=== PATIENT | female | born 1965 | race Caucasian/White ===

== ENCOUNTER → 2019-07-07 | Outpatient (CLI) | payer BC ==
--- NOTE | 2019-07-07 14:56 | US ---
EXAMINATION TYPE: US thyroid st tissue head/neck DATE OF EXAM: 07/07/2019 COMPARISON: NONE CLINICAL HISTORY: R13.13 Pharyngeal Dysphagia. Patient stated just started on thyroid medication for hypothyroidism. GLAND SIZE: Right Lobe: 4.1 x 1.4 x 1.8 cm Overall Parenchyma: heterogenous Left Lobe: 4.0 x 2.1 x 1.7 cm Overall Parenchyma: heterogeneous Isthmus Thickness: 0.5 cm NODULES RIGHT: # of nodules measured on right: 0 LEFT: # of nodules measured on left: 0 ISTHMUS: # of nodules measured in the isthmus: 0 Bilateral neck scanned: multiple small lymph nodes are seen superior to right thyroid with largest no de = 1.3 x 0.6 x 0.4cm and lymph node is seen superior to left thyroid = 1.7 x 0.9 x 0.4cm. IMPRESSION: Diffusely heterogenous thyroid gland that is upper limits of normal size. Morphologically normal-appe aring nonenlarged lymph nodes are seen adjacent to the thyroid. Given the diffuse heterogeneity of th e thyroid gland correlation with serum laboratory values to exclude thyroiditis are recommended.
--- NOTE | 2019-07-10 13:21 | MM ---
Reason for exam: screening (asymptomatic). Last mammogram was performed 2 years and 10 months ago. History: Patient is postmenopausal. Family history of breast cancer in 2 aunts. Physical Findings: A clinical breast exam by your physician is recommended on an annual basis and results should be correlated with mammographic findings. MG Screening Mammo w CAD Bilateral CC and MLO view(s) were taken. Prior study comparison: August 27, 2016, bilateral MG screening mammo w CAD. April 17, 2011, bilateral digital screening mammo w/CAD. The breast tissue is heterogeneously dense. This may lower the sensitivity of mammography. No significant changes when compared with prior studies. ASSESSMENT: Negative, BI-RAD 1 RECOMMENDATION: Routine screening mammogram of both breasts in 1 year. Patient should continue monthly self breast exams. A negative report should not preclude additional follow up of suspicious palpable abnormalities.
== END | disposition home or self-care (01) ==
LOC: RADUSWWP 13:45
PROVIDERS: ATTEND Family Medicine
DX: Z12.31 Encounter for screening mammogram for malignant neoplasm of breast (principal); R93.89 Abnormal findings on diagnostic imaging of other specified body structures; R13.13 Dysphagia, pharyngeal phase
CPT/HCPCS: 76536; 77067

== ENCOUNTER 2019-07-13 06:38 | Day surgery (SDC) | payer BC ==
[2019-07-11 10:22] VITALS: BMI 23.6
[~2019-07-13 06:38] MED LIST: LACTATED RINGERS 1,000 ML IV SCH; LIDOCAINE 1% 20 ML VIAL (10MG/ML) FOR IV START INTRADERMA PRN
[2019-07-13 07:18] VITALS: RESP 16; TEMP 98.7
[2019-07-13] MEDS ORDERED: PROPOFOL 10 MG/ML 20 ML VIAL IV ONE (07:44)
--- NOTE | 2019-07-13 07:52 | P.GSHP ---
History of Present Illness H&P Date: 07/13/19 Chief Complaint: Screening colonoscopy Female referred from Dr. Sharad Argueta. Patient presents today for screening colonoscopy. Past Medical History Past Medical History: Hyperlipidemia, Thyroid Disorder History of Any Multi-Drug Resistant Organisms: None Reported Past Surgical History: Section, Tubal Ligation Additional Past Surgical History / Comment(s): D&C, sinusplasty Past Anesthesia/Blood Transfusion Reactions: No Reported Reaction Past Psychological History: No Psychological Hx Reported Smoking Status: Current every day smoker Past Alcohol Use History: Occasional Additional Past Alcohol Use History / Comment(s): smoker for 30 years <1ppd Past Drug Use History: None Reported - Past Family History Mother Family Medical History: No Reported History Medications and Allergies Home Medications Medication Instructions Recorded Confirmed Type Atorvastatin [Lipitor] 20 mg PO DAILY 07/11/19 07/13/19 History Levothyroxine Sodium [Synthroid] 50 mcg PO DAILY 07/11/19 07/13/19 History Multivitamins, Thera [Multivitamin 1 tab PO DAILY 07/11/19 07/11/19 History (formulary)] Corona-3 Fatty Acids/Fish Oil [Fish 1 each PO DAILY 07/11/19 07/11/19 History Oil 1,000 mg Softgel] Vitamin B Complex 1 each PO DAILY 07/11/19 07/11/19 History Allergies Allergy/AdvReac Type Severity Reaction Status Date / Time No Known Allergies Allergy Verified 07/13/19 07:19 Surgical - Exam Vital Signs Temp Pulse Resp BP Pulse Ox 98.7 F 93 16 126/75 100 07/13/19 07:17 07/13/19 07:17 07/13/19 07:17 07/13/19 07:17 07/13/19 07:17 - General well developed, well nourished, no distress - Eyes PERRL - ENT normal pinna - Neck no masses - Respiratory normal expansion - Cardiovascular Rhythm: regular - Abdomen Abdomen: soft, non tender Assessment and Plan Assessment: We'll perform screening colonoscopy
--- NOTE | 2019-07-13 08:09 | P.OP ---
Date of Procedure: 07/13/19 Preoperative Diagnosis: Screening colonoscopy Postoperative Diagnosis: Rectal polyp Procedure(s) Performed: Colonoscopy Anesthesia: MAC Surgeon: Jeremie Bautista Pathology: other (Rectal polyp) Condition: stable Disposition: PACU Description of Procedure: The patient's placed on the endoscopy table in the lateral position. She received IV sedation. Digital rectal exam was performed which revealed no rebound is. The flexible colonoscope was then placed patient anus passed throughout the entire colon. The ileocecal valve was visualized. The cecum, ascending and transverse colon appeared normal. The descending colon was normal. The sigmoid colon appeared normal. Scope summer back the rectum and a small polyp was seen. This removed with the cold forcep. The scope was then brought back the rectum and this appeared normal. Scope was withdrawn for patient.
[2019-07-13 08:28] VITALS: BP 117/80; PULSE 74
== END 2019-07-13 08:40 | disposition home or self-care (01) ==
LOC: ORWHC2ENDO 06:38
PROVIDERS: ATTEND Surgery
DX: Z12.11 Encounter for screening for malignant neoplasm of colon (principal); K62.1 Rectal polyp; E78.5 Hyperlipidemia, unspecified; E07.9 Disorder of thyroid, unspecified; F17.210 Nicotine dependence, cigarettes, uncomplicated; Z98.891 History of uterine scar from previous surgery; Z98.51 Tubal ligation status; Z98.890 Other specified postprocedural states; Z79.890 Hormone replacement therapy; Z79.899 Other long term (current) drug therapy
CPT/HCPCS: 88305; 45380; J2704

== ENCOUNTER → 2019-07-27 | Outpatient (CLI) | payer BC ==
[2019-07-28 03:20] LABS: Thyroid Peroxidase Antibodies >13000.0 U/mL (0.0-59.9)
== END | disposition home or self-care (01) ==
LOC: LABWHC1 11:36
PROVIDERS: ATTEND Otolaryngology
DX: E03.9 Hypothyroidism, unspecified (principal)
CPT/HCPCS: 36415; 86376; 86800

== ENCOUNTER 2020-05-09 21:35 | Emergency (ER) | payer BC ==
--- NOTE | 2020-05-09 22:50 | CT ---
EXAMINATION TYPE: CT brain juhiine wo con DATE OF EXAM: 05/09/2020 COMPARISON: None HISTORY: fall Headache. Neck pain CT DLP: 795.3 mGycm Automated exposure control for dose reduction was used. Ventricles and sulci appear normal. There is no mass effect nor midline shift. There is no sign of in tracranial hemorrhage. Calvarium is intact. There is no evidence of cerebral edema. The skull base is intact. There is normal aeration of the temporal bones. Cervical vertebra show fairly normal alignment. There is a minimal retrolisthesis at C5-6. There is m ild narrowing of C5-6 disc space. Posterior elements are intact. Facet joints appear fairly normal. P revertebral soft tissues appear normal. IMPRESSION: Negative CT scan of the brain. Negative CT scan cervical spine. Spondylotic changes at C5-6.
--- NOTE | 2020-05-09 22:55 | CT ---
EXAMINATION TYPE: CT facial bones wo con DATE OF EXAM: 05/09/2020 COMPARISON: None HISTORY: fall CT DLP: 213.3 mGycm Automated exposure control for dose reduction was used. Multiple axial sections were obtained from the bottom of the mandible to the top of the frontal sinus es without contrast. The mandibular ring is intact. Temporomandibular joints appear intact. Zygomatic arches appear normal . The maxilla appears intact. There is no evidence of a blowout fracture. Orbital margins are intact. There is no evidence of retro-orbital mass. The globes are symmetric. There is fairly normal development and aeration of the paranasal sinuses. I see no bony destructive p rocess. There is slight deformity of the nasal bone. There is no evidence of soft tissue mass. There is mild subcutaneous density lateral to the left temporalis muscle at the mandible. IMPRESSION: Possible nondisplaced fracture of the nasal bone. Mild subcutaneous density lateral to the left tempo ralis muscle at the mandible could be some minimal bruising or hematoma..
--- NOTE | 2020-05-09 22:57 | ED ---
Fall HPI - General Chief Complaint: Fall Stated Complaint: Fall Time Seen by Provider: 05/09/20 21:49 Source: patient Mode of arrival: ambulatory - History of Present Illness Initial Comments: 54-year-old female patient presents to the emergency department today for evaluation after falling and hitting her face on the stairs. Patient states that she had been drinking a little bit today. States that her grandson jumped on her and she fell forward hitting her face on a step. Patient denies any loss of consciousness. States she did injure her teeth and nose. She denies any neck or back pain. States that her tetanus vaccine is up-to-date within the last 5 years. She denies any other injuries. Patient denies any headache, neck pain, back pain, chest pain, shortness of breath, dizziness, weakness, abdominal pain, nausea, vomiting, or difficulties with bowel movements or urination. - Related Data Home Medications Medication Instructions Recorded Confirmed Atorvastatin [Lipitor] 20 mg PO DAILY 07/11/19 01/03/20 Salix-3 Fatty Acids/Fish Oil [Fish 1 each PO DAILY 07/11/19 01/03/20 Oil 1,000 mg Softgel] Vitamin B Complex 1 each PO DAILY 07/11/19 01/03/20 Levothyroxine Sodium 100 mcg PO DAILY 01/03/20 01/03/20 Omeprazole 20 mg PO DAILY 01/03/20 01/03/20 Allergies Allergy/AdvReac Type Severity Reaction Status Date / Time No Known Allergies Allergy Verified 05/09/20 21:46 Review of Systems ROS Statement: Those systems with pertinent positive or pertinent negative responses have been documented in the HPI. ROS Other: All systems not noted in ROS Statement are negative. Past Medical History Past Medical History: GERD/Reflux, Hyperlipidemia, Thyroid Disorder History of Any Multi-Drug Resistant Organisms: None Reported Past Surgical History: Section Additional Past Surgical History / Comment(s): colonoscopy. RHINOPLASTY Past Anesthesia/Blood Transfusion Reactions: No Reported Reaction Past Psychological History: No Psychological Hx Reported Smoking Status: Current every day smoker Past Alcohol Use History: Occasional Past Drug Use History: None Reported - Past Family History Mother Family Medical History: No Reported History General Exam Limitations: no limitations General appearance: alert, in no apparent distress, other (This is a well- developed, well-nourished adult female patient in no acute distress. Vital signs upon presentation are temperature 97.6F, pulse 100, respirations 18, blood pressure 126/89, pulse ox 96% on room air.) Head exam: Present: other (Patient has soft tissue swelling, ecchymosis noted to the submandibular region over the chin.) Eye exam: Present: normal appearance, PERRL, EOMI. Absent: scleral icterus, conjunctival injection, nystagmus, periorbital swelling, periorbital tenderness ENT exam: Present: normal exam, normal oropharynx, mucous membranes moist, other (Patient has broken tooth number 8. States that she did have crowns over the 8th and 9th teeth that broke off. Patient is 1.5 cm irregular laceration to the lower lip, inside the mouth over the bucchal surface. Patient has dried blood over the bilateral nares. No evidence of septal hematoma. ) Neck exam: Present: normal inspection, full ROM, other (Nontender, no step-off, no deformity to firm midline palpation of the posterior cervical spine. Full range of motion without pain or limitation.). Absent: tenderness, meningismus, lymphadenopathy Respiratory exam: Present: normal lung sounds bilaterally. Absent: respiratory distress, wheezes, rales, rhonchi, stridor Cardiovascular Exam: Present: regular rate, normal rhythm, normal heart sounds. Absent: systolic murmur, diastolic murmur, rubs, gallop, clicks GI/Abdominal exam: Present: soft, normal bowel sounds. Absent: distended, tenderness, guarding, rebound, rigid Extremities exam: Present: normal inspection, full ROM, normal capillary refill. Absent: tenderness, pedal edema, joint swelling, calf tenderness Back exam: Present: normal inspection, other (Nontender, no step-off, no deformity to firm midline palpation of the thoracic and lumbar vertebrae. Full range of motion without pain or limitation.). Absent: vertebral tenderness Neurological exam: Present: alert, oriented X3, CN II-XII intact Psychiatric exam: Present: normal affect, normal mood Skin exam: Present: warm, dry, intact, normal color. Absent: rash Course Vital Signs 05/09/20 21:42 Temperature 97.6 F Pulse Rate 100 Respiratory 18 Rate Blood Pressure 126/89 O2 Sat by Pulse 96 Oximetry Medical Decision Making - Medical Decision Making 54-year-old female patient presents to the emergency department today for evaluation of facial injuries after experiencing a fall. Physical examination did reveal dried blood to the bilateral nares, nasal bone tenderness, no evidence for septal hematoma. Patient did have a fractured tooth #8, missing crowns to t88th #8 and 9. Patient had a 1.5 cm irregular laceration noted to the bucchal mucosa over the lower lip. This did not require repair. CT brain cspine and facial bones were obtained. Patient did have possible nondisplaced nasal bone fracture. No evidence for brain or cervical spine injury. I did discuss findings and results with the patient. She is instructed to swish with salt water and to prevent food from getting into the lip laceration. She is instructed to follow-up with her primary care physician for recheck in 1-2 days. She was given follow-up information for ENT should she require it. Return parameters were discussed in detail. She verbalizes understanding and agrees with this plan. - Radiology Data Radiology results: report reviewed, image reviewed CT brain and C-spine without contrast was obtained. Report is reviewed in its entirety. Impression by Dr. Rose shows negative computed tomography scan of the brain. Negative computed tomography scan of the cervical spine. Spondylotic changes at C5 to 6. CT facial bones without contrast was obtained. Report is reviewed in its entirety. Impression by Dr. Rose shows possible nondisplaced fracture of the nasal bone. Mild subcutaneous density lateral to the left temporalis muscle at the mandible could be some minimal bruising or hematoma. Disposition Clinical Impression: Nasal bone fracture, Laceration of lower lip, Fractured dental anglican with loss of material Disposition: HOME SELF-CARE Condition: Good Instructions (If sedation given, give patient instructions): Nasal Fracture (ED), Laceration (ED) Additional Instructions: Keep wounds clean. Swish with salt water for the next couple of days. Follow- up with dentistry for further evaluation as soon as possible. Follow-up through primary care physician for recheck in 1-2 days. Follow up with ENT as needed. Return to the emergency department immediately for any new, worsening, or concerning symptoms. Is patient prescribed a controlled substance at d/c from ED?: No Referrals: Bren Carrington MD [Primary Care Provider] - 1-2 days Roly Bragg MD [STAFF PHYSICIAN] - 1-2 days
[2020-05-09 23:16] VITALS: BP 158/100; PULSE 78; RESP 16; TEMP 98.3
== END 2020-05-09 23:14 | disposition home or self-care (01) ==
LOC: EC 21:35
DX: S01.511A Laceration without foreign body of lip, initial encounter (principal); S02.2XXA Fracture of nasal bones, initial encounter for closed fracture; S02.5XXA Fracture of tooth (traumatic), initial encounter for closed fracture; E07.9 Disorder of thyroid, unspecified; E78.5 Hyperlipidemia, unspecified; K21.9 Gastro-esophageal reflux disease without esophagitis; F17.200 Nicotine dependence, unspecified, uncomplicated; Z79.890 Hormone replacement therapy; Z79.899 Other long term (current) drug therapy; W18.09XA Striking against other object with subsequent fall, initial encounter; Y92.009 Unspecified place in unspecified non-institutional (private) residence as the place of occurrence of the external cause
CPT/HCPCS: 70450; 70486; 72125; 99283

== ENCOUNTER → 2020-07-29 | Outpatient (CLI) | payer BC ==
--- NOTE | 2020-07-30 12:22 | MM ---
Reason for exam: screening (asymptomatic). Last mammogram was performed 1 year and 1 month ago. History: Patient is postmenopausal. Family history of breast cancer in 2 aunts. Physical Findings: A clinical breast exam by your physician is recommended on an annual basis and results should be correlated with mammographic findings. MG Screening Mammo w CAD Bilateral CC and MLO view(s) were taken. XCCL view(s) were taken of the right breast. Prior study comparison: July 07, 2019, bilateral MG screening mammo w CAD. August 27, 2016, bilateral MG screening mammo w CAD. The breast tissue is heterogeneously dense. This may lower the sensitivity of mammography. There are benign appearing vascular calcifications in the right breast. There is no discrete abnormality. ASSESSMENT: Benign, BI-RAD 2 RECOMMENDATION: Routine screening mammogram of both breasts in 1 year.
== END | disposition home or self-care (01) ==
LOC: RADMAMWWP 13:21
PROVIDERS: ATTEND Family Medicine
DX: Z12.39 Encounter for other screening for malignant neoplasm of breast (principal)
CPT/HCPCS: 77067

== ENCOUNTER → 2021-10-24 | Outpatient (CLI) | payer BC ==
--- NOTE | 2021-10-27 10:09 | MM ---
Reason for exam: screening (asymptomatic). Last mammogram was performed 1 year and 3 months ago. History: Patient is postmenopausal. Family history of breast cancer in 2 aunts. Physical Findings: A clinical breast exam by your physician is recommended on an annual basis and results should be correlated with mammographic findings. MG Screening Mammo w CAD Bilateral CC and MLO view(s) were taken. Prior study comparison: July 29, 2020, bilateral MG screening mammo w CAD. July 07, 2019, bilateral MG screening mammo w CAD. The breast tissue is heterogeneously dense. This may lower the sensitivity of mammography. There are benign appearing vascular calcifications bilaterally. There is no discrete abnormality. ASSESSMENT: Benign, BI-RAD 2 RECOMMENDATION: Routine screening mammogram of both breasts in 1 year.
== END | disposition home or self-care (01) ==
LOC: RADMAMWWP 09:55
PROVIDERS: ATTEND Family Medicine
DX: Z12.31 Encounter for screening mammogram for malignant neoplasm of breast (principal); Z80.3 Family history of malignant neoplasm of breast; Z78.0 Asymptomatic menopausal state
CPT/HCPCS: 77067

== ENCOUNTER → 2022-09-22 | Outpatient (CLI) | payer BC ==
--- NOTE | 2022-09-22 17:28 | US ---
EXAMINATION TYPE: US pelvic complete DATE OF EXAM: 09/22/2022 COMPARISON: CT 08/27/2022 CLINICAL HISTORY: N94.[address] showed left adnexal cyst , patient has zero symptoms TECHNIQUE: TA. Transabdominal sonographic images of the pelvis were acquired. Date of LMP: a couple years ago EXAM MEASUREMENTS: Uterus: 6.4 x 4.7 x 2.9 cm Endometrial Stripe: 0.5 cm Right Ovary: not seen Left Ovary: 2.9 x 3.3 x 2.4cm 1. Uterus: Anteverted wnl 2. Endometrium: wnl 3. Right Ovary: not seen due to bowel gas and or atrophy 4. Left Ovary: 1.8 x 1.4 x 1.3cm, cystic structure does appear to be in ovary and is half the size i t was [address] measurement 4.6 x 2.1 cm. 5. Bilateral Adnexa: wnl 6. Posterior cul-de-sac: wnl Urinary bladder is sonolucent. IMPRESSION: 1. Resolving left ovarian cyst. Additional follow-up ultrasound recommended in 6 weeks.
== END | disposition home or self-care (01) ==
LOC: RADUSWWP 08:17
PROVIDERS: ATTEND Family Medicine
DX: N83.202 Unspecified ovarian cyst, left side (principal); N94.9 Unspecified condition associated with female genital organs and menstrual cycle
CPT/HCPCS: 76856

== ENCOUNTER → 2022-09-25 | Outpatient (CLI) | payer BC ==
--- NOTE | 2022-09-29 08:36 | PE ---
EXAMINATION TYPE: PET CT fusion skull to thigh DATE OF EXAM: 09/25/2022 COMPARISON: Whole-body CT August 27, 2022 HISTORY: Solitary pulmonary nodule, abnormal CT TECHNIQUE: Following the intravenous administration of 11.2 mCi of F-18 FDG, whole body images are p erformed from the skull base to the midthigh. Images are reviewed on the computer in the coronal, ax ial, and sagittal planes. Reconstructed rotating images are created on independent workstation and r eviewed on the computer. A localization and attenuation correction CT is performed in conjunction w ith the PET scan. Blood glucose level was 98 SCAN: Initial Scan FINDINGS: SKULL BASE AND NECK: No areas of abnormal hypermetabolic uptake. CHEST, MEDIASTINUM, AND HILAR REGION: Mild to moderate underlying emphysematous changes are redemonst rated. Persistent linear scarring with slight nodularity in the right middle lobe axial image 107 ewelina ws no suspicious hypermetabolic uptake. Persistent spiculated nodule or scar like opacity posterior l eft upper lobe measures 1.8 x 0.8 cm with mild hypermetabolic uptake axial image 75, max SUV is 0.99. No additional areas of abnormal hypermetabolic uptake. ABDOMEN AND PELVIS: No adrenal masses. Normal excretion. No abnormal hypermetabolic uptake. OSSEOUS STRUCTURES: No abnormal hypermetabolic uptake. OTHER CT: Patient has little intra-abdominal fat similar to prior. Persistent low dense oval 5.8 x 2. 0 cm lesion in the left adnexa favoring benign thin-walled cyst unchanged in size and appearance from prior CT. Disc space narrowing with vacuum disc phenomenon lumbosacral junction is redemonstrated. IMPRESSION: Stable spiculated 1.8 x 0.8 cm lesion posterior left upper lobe with minimal hypermetabol ic uptake. Neoplasm unlikely but cannot be entirely excluded. Favor postinflammatory scarring. No sumeet picious adenopathy or metastatic disease noted. Consider short-term CT follow-up in 3-6 months time t o document stability.
== END | disposition home or self-care (01) ==
LOC: RADPETMAIN 06:52
PROVIDERS: ATTEND Family Medicine
DX: R91.1 Solitary pulmonary nodule (principal); R93.89 Abnormal findings on diagnostic imaging of other specified body structures
CPT/HCPCS: 78815; A9552

== ENCOUNTER → 2022-10-26 | Outpatient (CLI) | payer BC ==
--- NOTE | 2022-10-27 06:51 | MM ---
Reason for Exam: Screening (asymptomatic). Last mammogram was performed 1 year(s) and 1 month(s) ago. Patient History: Menarche at age 15. First Full-Term at age 24. Postmenopausal. Maternal aunt had breast cancer. Maternal aunt had breast cancer. Risk Values: Ginny 5 year model risk: 1.1%. NCI Lifetime model risk: 7.4%. Prior Study Comparison: 07/07/2019 Bilateral Screening Mammogram, [facility]. 07/29/2020 Bilateral Screening Mammogram, [facility]. 10/24/2021 Bilateral Screening Mammogram, [facility]. Tissue Density: The breast tissue is heterogeneously dense. This may lower the sensitivity of mammography. Findings: Analyzed By CAD. There is benign-appearing vascular calcifications bilaterally redemonstrated. There is no suspicious group of microcalcifications or new suspicious mass in either breast. Overall Assessment: Negative, BI-RAD 1 Management: Screening Mammogram of both breasts in 1 year. Some advise bilateral breast ultrasound surveillance in patients with background dense tissue. A clinical breast exam by your physician is recommended on an annual basis and results should be correlated with mammographic findings. Electronically signed and approved by: Marek Land M.D.
== END | disposition home or self-care (01) ==
LOC: RADMAMWWP 09:04
PROVIDERS: ATTEND Family Medicine
DX: Z12.31 Encounter for screening mammogram for malignant neoplasm of breast (principal); Z80.3 Family history of malignant neoplasm of breast; Z78.0 Asymptomatic menopausal state
CPT/HCPCS: 77067

== ENCOUNTER → 2023-04-13 | Outpatient (CLI) | payer BC ==
--- NOTE | 2023-04-13 13:27 | CT ---
EXAMINATION TYPE: CT chest w con CT DLP: 109.9 mGycm, Automated exposure control for dose reduction was used. DATE OF EXAM: 04/13/2023 12:53 PM COMPARISON: 12/24/2022., PET/CT 10/13/2022, 08/27/2022. CLINICAL INDICATION:Female, 57 years old with history of R91., lung nodule TECHNIQUE: Multiple axial images were obtained through the chest. Sagittal and coronal reformats were created for review. Contrast used:100 mL of Isovue 300 with IV Contrast Oral contrast used: none. FINDINGS: LUNGS/ PLEURA: Left upper lung spiculated scarring/pulmonary nodule is similar morphology to the back to at least 08/27/2022. There is somewhat spiculated peripheral groundglass and more of a central shad id portion measuring at least 7 mm. There is centrilobular emphysema changes throughout the lungs. No focal consolidation, pneumothorax or pleural effusion. No new pulmonary nodules. There is some scarr ing along the right lung base to the diaphragm. AIRWAY: Patent and unremarkable. HEART: Size within normal limits. MEDIASTINUM: No gross evidence of adenopathy. VASCULATURE: Atherosclerotic calcifications are present throughout the aorta and its branches. MUSCULOSKELETAL: Mild disc degeneration changes are present throughout the thoracolumbar spine. SOFT TISSUES/LYMPH NODES: Unremarkable. LOWER NECK: No significant findings. UPPER ABDOMEN: No significant findings. IMPRESSION: Left upper lung pulmonary nodule with somewhat spiculated borders is similar in morpholog y to multiple priors back to at least 08/27/2022. Soft tissue component is felt to not be all that dif ferent given differences in technique and slice selection. Continued surveillance recommended.
== END | disposition home or self-care (01) ==
LOC: RADCTMAIN 12:27
PROVIDERS: ATTEND Internal Medicine Critical Care Medicine
DX: R91.1 Solitary pulmonary nodule (principal)
CPT/HCPCS: 71260; Q9967

== ENCOUNTER 2023-09-24 12:52 | Inpatient (IN) | payer BC ==
--- NOTE | 2023-09-24 12:56 | ED ---
SOB HPI - General Source: patient, RN notes reviewed <Zuly Quiñonez - Last Filed: 09/24/23 12:57> - General Source: RN notes reviewed, old records reviewed - History of Present Illness MD Complaint: shortness of breath, cough, chest pain, anxiety -: days(s) Radiation: back Severity: mild, moderate Severity scale (1-10): 4 Quality: aching Consistency: constant Improves With: nothing Worsens With: nothing Known History Of: COPD, congestive heart failure Context: recent URI, recent illness Associated Symptoms: denies other symptoms Treatments Prior to Arrival: none <Frankie Kincaid - Last Filed: 09/27/23 21:47> - General Stated Complaint: STIVEN Time Seen by Provider: 09/24/23 12:56 - History of Present Illness Initial Comments: Patient is a 58-year-old female presenting to the ER with chief complaint of shortness of breath. Patient states this started in the middle of the night last night. Patient states she feels that she cannot catch her breath. Patient denies any fevers, chills, night sweats. (Zuly Quiñonez) This is a 58-year-old female to the ER for evaluation of sweats sweats and shortness of breath starting last night worsening today with left-sided chest pain significant. Shortness of breath this at times severe (Frankie Kincaid) - Related Data Home Medications Medication Instructions Recorded Confirmed Atorvastatin [Lipitor] 20 mg PO HS 07/11/19 09/24/23 Levothyroxine Sodium 100 mcg PO DAILY 01/03/20 09/24/23 Hydroxychloroquine Sulfate 200 mg PO BID 09/24/23 09/24/23 [Plaquenil] NIFEdipine XL [Procardia XL] 30 mg PO DAILY 09/24/23 09/24/23 Nicotine 21Mg/24Hr Patch [Habitrol] 1 patch TRANSDERM DAILY PRN 09/24/23 09/24/23 Previous Rx's Medication Instructions Recorded Albuterol Sulfate [Albuterol 2 puff INHALATION RT-Q6H #1 09/26/23 Sulfate Hfa] Budesonide-Formot 160-4.5 Mcg 2 puff INHALATION BID #1 each 09/26/23 [Symbicort 160-4.5 Mcg Inhaler] cefUROXime axetiL [Ceftin] 500 mg PO BID 3 Days #6 tab 09/26/23 predniSONE 10 mg PO DIRECTED #30 tab 09/26/23 Allergies Allergy/AdvReac Type Severity Reaction Status Date / Time No Known Allergies Allergy Verified 09/24/23 16:46 Review of Systems ROS Other: All systems not noted in ROS Statement are negative. <Zuly Quiñonez - Last Filed: 09/24/23 12:57> ROS Other: All systems not noted in ROS Statement are negative. <Frankie Kincaid - Last Filed: 09/27/23 21:47> ROS Statement: Those systems with pertinent positive or pertinent negative responses have been documented in the HPI. Past Medical History Past Medical History: GERD/Reflux, Hyperlipidemia, Thyroid Disorder History of Any Multi-Drug Resistant Organisms: None Reported Past Surgical History: Section Additional Past Surgical History / Comment(s): colonoscopy. RHINOPLASTY Past Anesthesia/Blood Transfusion Reactions: No Reported Reaction Past Psychological History: No Psychological Hx Reported Smoking Status: Current every day smoker Past Alcohol Use History: Occasional Past Drug Use History: None Reported - Past Family History Mother Family Medical History: No Reported History <Zuly Quiñonez - Last Filed: 09/24/23 12:57> General Exam <Zuly Quiñonez - Last Filed: 09/24/23 12:57> General appearance: alert, in no apparent distress, anxious Head exam: Present: atraumatic, normocephalic, normal inspection Eye exam: Present: normal appearance, PERRL, EOMI. Absent: scleral icterus, conjunctival injection, periorbital swelling ENT exam: Present: normal exam, mucous membranes moist Neck exam: Present: normal inspection. Absent: tenderness, meningismus, lymphadenopathy Respiratory exam: Present: respiratory distress, wheezes, accessory muscle use, decreased breath sounds, prolonged expiratory. Absent: rales, rhonchi, stridor Cardiovascular Exam: Present: regular rate, normal rhythm, normal heart sounds. Absent: systolic murmur, diastolic murmur, rubs, gallop, clicks GI/Abdominal exam: Present: soft, normal bowel sounds. Absent: distended, tenderness, guarding, rebound, rigid Extremities exam: Present: normal inspection, full ROM, normal capillary refill. Absent: tenderness, pedal edema, joint swelling, calf tenderness Back exam: Present: normal inspection Neurological exam: Present: alert, oriented X3, CN II-XII intact Psychiatric exam: Present: normal affect, normal mood Skin exam: Present: warm, dry, intact, normal color. Absent: rash <Frankie Kincaid - Last Filed: 09/27/23 21:47> - General Exam Comments Initial Comments: Visual Physical Exam Vital signs reviewed General: Well-appearing, nontoxic, no acute distress. Head: Normocephalic, atraumatic Eyes: PERRLA, EOMI ENT: Airway patent Chest: Nonlabored breathing Skin: No visual rash, normal skin tone Neuro: Alert and oriented 3 Musculoskeletal: No gross abnormalities (Zuly Quiñonez) Course <Frankie Kincaid - Last Filed: 09/27/23 21:47> Vital Signs 09/24/23 09/24/23 09/24/23 13:16 16:19 16:37 Temperature 98.6 F 98.8 F Pulse Rate 100 101 H 105 H Pulse Rate [ Left] Respiratory 20 20 20 Rate Blood Pressure 123/77 128/75 Blood Pressure [Left Arm] O2 Sat by Pulse 88 L 84 L 90 L Oximetry 09/24/23 09/24/23 09/24/23 17:00 17:14 17:21 Temperature Pulse Rate 102 H 101 H 101 H Pulse Rate [ Left] Respiratory 20 18 16 Rate Blood Pressure Blood Pressure [Left Arm] O2 Sat by Pulse 93 L Oximetry 09/24/23 09/24/23 19:00 19:55 Temperature 98.4 F Pulse Rate 100 Pulse Rate [ 102 H Left] Respiratory 18 18 Rate Blood Pressure 129/78 Blood Pressure 131/79 [Left Arm] O2 Sat by Pulse 90 L 92 L Oximetry - Reevaluation(s) Reevaluation #1: 09/24/23 17:11 Medical records reviewed (Frankie Kincaid) Reevaluation #2: 09/24/23 17:12 Oximetry remains low without supplemental oxygen (Frankie Kincaid) Reevaluation #3: 09/24/23 17:12 Patient informed results and questions answered (Frankie Kincaid) Reevaluation #4: 09/24/23 17:12 Was pt. sent in by a medical professional or institution (Dr., PA, SILK WINDING MACHINE OPERATOR, urgent care, hospital, or skilled nursing...) When possible be specific @ -no Did you speak to anyone other than the patient for history (EMS, parent, family, police, friend...)? What history was obtained from this source @ -no Did you review nursing and triage notes (agree or disagree)? Why? @ -agree Are old charts reviewed (outside hosp., previous admission, EMS record, old EKG, old radiological studies, urgent care reports/EKG's, skilled nursing records)? Repo rt findings @ -yes Differential Diagnosis (chest pain, altered mental status, abdominal pain women, abdominal pain men, vaginal bleeding, weakness, fever, dyspnea, syncope, headache, dizziness, GI bleed, back pain, seizure, CVA, palpatations, mental health, musculoskeletal)? @ -prior EKG interpreted by me (3pts min.). @ -yes X-rays interpreted by me (1pt min.). @ -yes CT interpreted by me (1pt min.). @ -no U/S interpreted by me (1pt. min.). @ -no What testing was considered but not performed or refused? (CT, X-rays, U/S, labs)? Why? @ -none What meds were considered but not given or refused? Why? @ -none Did you discuss the management of the patient with other professionals (danielle mendoza i.e. MELISSA Sabillon, SILK WINDING MACHINE OPERATOR, lab, RT, psych nurse, social group worker, car audio installer, teacher, mechanical engineering officer, social work case manager)? Give summary @ -no Was smoking cessation discussed for >3mins.? @ -no Was critical care preformed (if so, how long)? @ -no Were there social determinants of health that impacted care today? How? (Homelessness, low income, unemployed, alcoholism, drug addiction, transportation, low edu. Level, literacy, decrease access to med. care, senior care, rehab)? @ -none Was there de-escalation of care discussed even if they declined (Discuss DNR or withdrawal of care, Hospice)? DNR status @ -no What co-morbidities impacted this encounter? (DM, HTN, Smoking, COPD, CAD, Cancer, CVA, ARF, Chemo, Hep., AIDS, mental health diagnosis, sleep apnea, morbid obesity)? @ -none Was patient admitted / discharged? Hospital course, mention meds given and route, prescriptions, significant lab abnormalities, going to OR and other pertinent info. @ - 58 female with significant shortness breath found to have pneumonia here in the emergency room. Patient will be admitted for IV antibiotics breathing trent atments as needed and necessary for pneumonia with severe shortness of breath especially with activity patient was found be hypoxic the 80s here in the ER Admitted Undiagnosed new problem with uncertain prognosis? @ -no Drug Therapy requiring intensive monitoring for toxicity (Heparin, Nitro, Insul in, Cardizem)? @ -no Were any procedures done? @ -no Diagnosis/symptom? @ -Respiratory failure, hypoxia pneumonia with underlying COPD Acute, or Chronic, or Acute on Chronic? @ -Acute Uncomplicated (without systemic symptoms) or Complicated (systemic symptoms)? @ -Complicated Side effects of treatment? @ -no Exacerbation, Progression, or Severe Exacerbation? @ -exacerbation Poses a threat to life or bodily function? How? (Chest pain, USA, OR, pneumonia, PE, COPD, DKA, ARF, appy, cholecystitis, CVA, Diverticulitis, Homicidal, Suicidal, threat to staff... and all critical care pts) @ -yes with significant respiratory failure (Frankie Kincaid) Reevaluation #5: 09/24/23 17:12 Differential Dyspnea: Coronary syndrome, arrhythmia, tamponade, asthma, COPD, pulmonary embolism, pneumonia, pneumothorax, pulmonary effusion, anaphylaxis, diabetic ketoacidosis, flailed chest, pulmonary contusion, diaphragmatic rupture, anemia, ne uromuscular, this is not meant to be an all-inclusive list. (Frankie Kincaid) - Consultations Consultation #1: Spoke with [facility] were agrees to admit this patient (Frankie Kincaid) Medical Decision Making <Zuly Quiñonez - Last Filed: 09/24/23 12:57> - Lab Data Result diagrams: 09/26/23 08:15 09/26/23 08:15 - EKG Data -: EKG Interpreted by Me (EKG is sinus tachycardia 96 VT 163 QRS 79 QTc 407) - Radiology Data Radiology results: report reviewed (Chest x-rays positive for pneumonia), image reviewed <Frankie Kincaid - Last Filed: 09/27/23 21:47> - Medical Decision Making I performed the quick note portion of the exam. Electronically signed by Zuly Quiñonez PA-C (Zuly Quiñonez) 58 female with significant shortness breath found to have pneumonia here in the emergency room. Patient will be admitted for IV antibiotics breathing greta tments as needed and necessary for pneumonia with severe shortness of breath especially with activity patient was found be hypoxic the 80s here in the ER (Frankie Kincaid) - Lab Data Lab Results 09/24/23 09/24/23 09/24/23 Range/Units 13:21 13:21 13:21 WBC 9.0 (3.8-10.6) k/uL RBC 4.39 (3.80-5.40) m/uL Hgb 15.0 (11.4-16.0) gm/dL Hct 44.3 (34.0-46.0) % MCV 101.1 H (80.0-100.0) fL MCH 34.1 (25.0-35.0) pg MCHC 33.8 (31.0-37.0) g/dL RDW 11.8 (11.5-15.5) % Plt Count 225 (150-450) k/uL MPV 7.5 Neutrophils % 79 % Lymphocytes % 10 % Monocytes % 5 % Eosinophils % 4 % Basophils % 0 % Neutrophils # 7.2 (1.3-7.7) k/uL Lymphocytes # 0.9 L (1.0-4.8) k/uL Monocytes # 0.4 (0-1.0) k/uL Eosinophils # 0.3 (0-0.7) k/uL Basophils # 0.0 (0-0.2) k/uL D-Dimer (<0.60) mg/L FEU Sodium 140 (137-145) mmol/L Potassium 4.0 (3.5-5.1) mmol/L Chloride 105 (98-107) mmol/L Carbon Dioxide 23 (22-30) mmol/L Anion Gap 12 mmol/L BUN 7 (7-17) mg/dL Creatinine 0.44 L (0.52-1.04) mg/dL Est GFR (CKD-EPI)AfAm >90 (>60 ml/min/1.73 sqM) Est GFR (CKD-EPI)NonAf >90 (>60 ml/min/1.73 sqM) Glucose 88 (74-99) mg/dL Calcium 9.7 (8.4-10.2) mg/dL Total Bilirubin 1.0 (0.2-1.3) mg/dL AST 28 (14-36) U/L ALT 20 (4-34) U/L Alkaline Phosphatase 101 (38-126) U/L Troponin I <0.012 (0.000-0.034) ng/mL Total Protein 8.4 H (6.3-8.2) g/dL Albumin 5.1 H (3.5-5.0) g/dL 09/24/23 Range/Units 13:21 WBC (3.8-10.6) k/uL RBC (3.80-5.40) m/uL Hgb (11.4-16.0) gm/dL Hct (34.0-46.0) % MCV (80.0-100.0) fL MCH (25.0-35.0) pg MCHC (31.0-37.0) g/dL RDW (11.5-15.5) % Plt Count (150-450) k/uL MPV Neutrophils % % Lymphocytes % % Monocytes % % Eosinophils % % Basophils % % Neutrophils # (1.3-7.7) k/uL Lymphocytes # (1.0-4.8) k/uL Monocytes # (0-1.0) k/uL Eosinophils # (0-0.7) k/uL Basophils # (0-0.2) k/uL D-Dimer 0.41 (<0.60) mg/L FEU Sodium (137-145) mmol/L Potassium (3.5-5.1) mmol/L Chloride (98-107) mmol/L Carbon Dioxide (22-30) mmol/L Anion Gap mmol/L BUN (7-17) mg/dL Creatinine (0.52-1.04) mg/dL Est GFR (CKD-EPI)AfAm (>60 ml/min/1.73 sqM) Est GFR (CKD-EPI)NonAf (>60 ml/min/1.73 sqM) Glucose (74-99) mg/dL Calcium (8.4-10.2) mg/dL Total Bilirubin (0.2-1.3) mg/dL AST (14-36) U/L ALT (4-34) U/L Alkaline Phosphatase (38-126) U/L Troponin I (0.000-0.034) ng/mL Total Protein (6.3-8.2) g/dL Albumin (3.5-5.0) g/dL Critical Care Time Critical Care Time: Yes Total Critical Care Time: 31 <Frankie Kincaid - Last Filed: 09/27/23 21:47> Disposition <Zuly Quiñonez - Last Filed: 09/24/23 12:57> Is patient prescribed a controlled substance at d/c from ED?: No Time of Disposition: 17:05 <Frankie Kincaid - Last Filed: 09/27/23 21:47> Clinical Impression: Acute exacerbation of chronic obstructive pulmonary disease, Community acquired pneumonia, Hypoxia, Acute respiratory failure Disposition: ADMITTED IP TO THIS HOSP Condition: Serious
[2023-09-24 13:40] LABS: Basophils % (A) 0 %; Eosinophils # (A) 0.3 k/uL (0-0.7); Eosinophils % (A) 4 %; HCT 44.3 % (34.0-46.0); Lymphocytes # (A) 0.9 k/uL (1.0-4.8); Lymphocytes % (A) 10 %; MCH 34.1 pg (25.0-35.0); MCHC 33.8 g/dL (31.0-37.0); MCV 101.1 fL (80.0-100.0); Mean Platelet Volume 7.5; Monocytes # (A) 0.4 k/uL (0-1.0); Monocytes % (A) 5 %; Neutrophils # (A) 7.2 k/uL (1.3-7.7); Neutrophils % (A) 79 %; Platelet Count 225 k/uL (150-450); RBC 4.39 m/uL (3.80-5.40); RDW 11.8 % (11.5-15.5)
[2023-09-24 14:02] LABS: ALT 20 U/L (4-34); AST 28 U/L (14-36); African American GFR (CKD) >90 (>60 ml/min/1.73 sqM); Albumin 5.1 g/dL (3.5-5.0); Alkaline Phosphatase 101 U/L (38-126); Anion Gap 12 mmol/L; Blood Urea Nitrogen 7 mg/dL (7-17); Calcium 9.7 mg/dL (8.4-10.2); Carbon Dioxide 23 mmol/L (22-30); Chloride 105 mmol/L (98-107); Glucose 88 mg/dL (74-99); Non-African American GFR(CKD) >90 (>60 ml/min/1.73 sqM); Sodium 140 mmol/L (137-145); Total Protein 8.4 g/dL (6.3-8.2)
--- NOTE | 2023-09-24 14:08 | XR ---
EXAMINATION TYPE: XR chest 2V DATE OF EXAM: 09/24/2023 COMPARISON: CT chest on 04/13/2023. HISTORY: Shortness of breath. TECHNIQUE: Frontal and lateral views of the chest are obtained. IMPRESSION: There is a subtle area of opacity within the left suprahilar region which may represent an airspace p rocess. Short-term follow to resolution is recommended to exclude underlying nodules. There is no add itional focal area of consolidation. The lungs are hyperinflated. The cardiac silhouette and pulmonary vessels are within normal limits.
[2023-09-24] MEDS ORDERED: AZITHROMYCIN 500 MG in SODIUM CHLORIDE 0.9% 250 ML IVPB STA (16:29)
[2023-09-24] MEDS ORDERED: SODIUM CHLORIDE 0.9% 500 ML 500 ML IV STA (16:29)
[2023-09-24] MEDS ORDERED: PNEUMONIA PROTOCOL UTILIZED 1 EACH MISC PO PRN (17:08)
[2023-09-24] MEDS: ALBUTEROL NEBULIZED 2.5 MG/3 ML INHALATION PRN ×2 (17:14→23:11)
[2023-09-24] MEDS ORDERED: MAGNESIUM OXIDE 400 MG TAB PO STA (17:30)
[2023-09-24] MEDS ORDERED: MAGNESIUM SULFATE-D5W PMX 1 GM in DEXTROSE/WATER 1 100ML.BAG IVPB ONE (17:30)
[2023-09-24] MEDS: SODIUM CHLORIDE 0.9% 1,000 ML IV SCH (19:31)
[2023-09-24] MEDS ORDERED: NICOTINE 21MG/24HR PATCH TRANSDERM PRN (23:47)
[2023-09-24] MEDS ORDERED: ACETAMINOPHEN TAB 325 MG TAB PO PRN (23:49)
[2023-09-25] MEDS: SODIUM CHLORIDE 0.9% 1,000 ML IV SCH ×2 (03:36→15:06)
[2023-09-25] MEDS: ALBUTEROL NEBULIZED 2.5 MG/3 ML INHALATION PRN ×4 (03:57→16:41)
[2023-09-25] MEDS: LEVOTHYROXINE 100 MCG TAB PO SCH (06:42)
--- NOTE | 2023-09-25 08:08 | XR ---
EXAMINATION TYPE: XR chest 2V DATE OF EXAM: 09/25/2023 COMPARISON: 09/24/2023 INDICATION: Pneumonia TECHNIQUE: Frontal and lateral views of the chest are obtained. FINDINGS: The heart size is normal. The pulmonary vasculature is normal. The lungs are clear. Left suprahilar region appears improved There is some hyperinflation present. C orrelate for COPD IMPRESSION: 1. No acute pulmonary process. 2. COPD
[2023-09-25] MEDS: HYDROXYCHLOROQUINE SULFATE 200 MG TAB PO SCH ×2 (09:25→20:11)
[2023-09-25] MEDS: NIFEdipine XL 30 MG TAB.ER.24 PO SCH (09:26)
[2023-09-25] MEDS ORDERED: ALPRAZolam 0.25 MG TAB PO PRN (13:11)
--- NOTE | 2023-09-25 14:22 | CT ---
EXAMINATION TYPE: CT chest wo con DATE OF EXAM: 09/25/2023 COMPARISON: 04/13/2023 HISTORY: LT pneumonia CT DLP: 181.3 mGycm, Automated exposure control for dose reduction was used. CONTRAST: Performed injected with 0 mL of Isovue 300. TECHNIQUE: Axial images were obtained at 5 mm thick sections. Reconstructed images are reviewed on EXPO computer in the coronal plane. FINDINGS: Portion of the thyroid visualized is normal. There is an approximately 1.8 cm stable spiculated density in the posterior left midlung. Series 201 image 46. Ill-defined stable 1.2 cm increased density is in the right middle lobe. Series 201 image 9 0. There may be a new infiltrate within the medial right mid lung. Series 201 and image 67. No enlarged mediastinal or hilar adenopathy is evident. The ascending aorta diameter at the level o f the main pulmonary artery is 3.1 cm. The main pulmonary artery diameter at the bifurcation is 2.[address] sections are obtained through the upper abdomen. Abdomen is essentially unremarkable. IMPRESSION: 1. No suspicious large consolidation suggest pneumonia. A new minimal infiltrate within the right mid lung may be present discussed above. 2. Stable irregular densities right mid and left upper lung ayala.
[2023-09-25] MEDS: methylPREDNISolone SOD SUCCI 40 MG/ML 1 ML VIAL IV SCH ×3 (15:03→23:46)
[2023-09-25] MEDS ORDERED: diphenhydrAMINE 25 MG CAP PO PRN (17:01)
[2023-09-25] MEDS: HEPARIN SODIUM,PORCINE 5,000 UNIT/ML 1 ML VIAL SQ SCH (20:11)
[2023-09-25] MEDS ORDERED: ATORVASTATIN 20 MG TAB PO SCH (21:00)
--- NOTE | 2023-09-25 21:41 | HP ---
HISTORY AND PHYSICAL CHIEF COMPLAINT: Shortness of breath and cough. HISTORY OF PRESENT ILLNESS: This is a 58-year-old woman with a past medical history of multiple medical problems, who presented with significant shortness of breath, cough, and sputum last night. The possibility of left suprahilar pneumonia suspected, patient started with IV antibiotics as well as bronchodilators, steroids, and the patient was admitted for further evaluation and treatment. There is no history of any fever, rigors, or chills at this time. The repeat chest x-ray showed some improvement. PAST MEDICAL HISTORY: Reviewed include GERD, hyperlipidemia, rest of the history and rest of the chart is also reviewed. HOME MEDICATIONS: Reviewed include Procardia XL, dose and rest of medications reviewed. ALLERGIES: None. FAMILY HISTORY: No history of heart disease or strokes in the family. SOCIAL HISTORY: History of smoking. REVIEW OF SYSTEMS: A 14-point review is negative except as mentioned earlier. PHYSICAL EXAMINATION: VITAL SIGNS: Pulse is 100, blood pressure 94/65, respirations 16. HEENT: Conjunctivae normal. NECK: No jugular venous distention. CARDIOVASCULAR: S1, S2. RESPIRATIONS: Bilateral scattered rhonchi and crackles. Expiratory wheezing. ABDOMEN: Soft. NERVOUS SYSTEM: No focal deficits. LABORATORY DATA: MCV 101.1. ASSESSMENT: 1. Chronic obstructive pulmonary disease acute exacerbation with possible acute purulent tracheobronchitis, rule out left suprahilar pneumonia. 2. Prominent hilum in the x-ray. 3. GERD. 4. Hyperlipidemia. 5. Hypothyroidism. 6. Possible history of left lung nodule. 7. History of nicotine dependence, continue ongoing. 8. No code, no CPR. RECOMMENDATIONS: This 58-year-old woman presented with multiple complex medical issues, we will monitor the patient closely. We will continue with IV steroids, antibiotics, bronchodilators. Otherwise, empiric antibiotics. I would also recommend close followup with Pulmonary consultation, guarded prognosis. Further recommendations to follow, see orders for details. MMODL / IJN: [id number] /
[2023-09-26] MEDS: LEVOTHYROXINE 100 MCG TAB PO SCH (06:30)
[2023-09-26] MEDS: methylPREDNISolone SOD SUCCI 40 MG/ML 1 ML VIAL IV SCH (06:30)
[2023-09-26] MEDS ORDERED: PANTOPRAZOLE 40 MG TABLET PO SCH (07:30)
[2023-09-26] MEDS: HEPARIN SODIUM,PORCINE 5,000 UNIT/ML 1 ML VIAL SQ SCH (08:40)
[2023-09-26] MEDS: HYDROXYCHLOROQUINE SULFATE 200 MG TAB PO SCH (08:40)
[2023-09-26] MEDS: NIFEdipine XL 30 MG TAB.ER.24 PO SCH (08:40)
[2023-09-26] MEDS: ALBUTEROL NEBULIZED 2.5 MG/3 ML INHALATION PRN (09:16)
[2023-09-26 09:47] VITALS: PULSE 72
[2023-09-26 09:48] VITALS: BP 135/64; RESP 17; TEMP 97.7
[2023-09-26 10:14] LABS: Basophils % (A) 0 %; Eosinophils # (A) 0.1 k/uL (0-0.7); Eosinophils % (A) 1 %; HCT 41.7 % (34.0-46.0); HGB 13.3 gm/dL (11.4-16.0); Hypochromasia Slight; Lymphocytes # (A) 0.8 k/uL (1.0-4.8); Lymphocytes % (A) 8 %; MCH 33.8 pg (25.0-35.0); MCHC 31.9 g/dL (31.0-37.0); Macrocytosis Slight; Mean Platelet Volume 8.3; Monocytes # (A) 0.2 k/uL (0-1.0); Monocytes % (A) 2 %; Neutrophils # (A) 8.8 k/uL (1.3-7.7); Neutrophils % (A) 88 %; Platelet Count 202 k/uL (150-450); RBC 3.93 m/uL (3.80-5.40); RDW 11.6 % (11.5-15.5)
[2023-09-26 11:05] LABS: MCV 106.1 fL (80.0-100.0)
[2023-09-26 12:35] LABS: African American GFR (CKD) >90 (>60 ml/min/1.73 sqM); Anion Gap 14 mmol/L; Blood Urea Nitrogen 5 mg/dL (7-17); Calcium 9.2 mg/dL (8.4-10.2); Carbon Dioxide 20 mmol/L (22-30); Chloride 106 mmol/L (98-107); Glucose 198 mg/dL (74-99); Non-African American GFR(CKD) >90 (>60 ml/min/1.73 sqM); Potassium 4.4 mmol/L (3.5-5.1); Sodium 140 mmol/L (137-145)
--- NOTE | 2023-09-26 12:40 | P.CNPUL ---
History of Present Illness Consult date: 09/26/23 Requesting physician: Shannan Argueta Reason for consult: dyspnea, COPD Chief complaint: Shortness of breath History of present illness: This is a very pleasant 58-year-old female patient with a known history of chronic and ongoing tobacco dependence, chronic obstructive pulmonary disease, pulmonary nodule being followed in the outpatient setting, hyperlipidemia, hypothyroidism, hypertension. He presented to the emergency room on 09/24/2023 with a 2 day history of increasing shortness of breath that started in the middle of the night. She felt she could not catch her breath. Chest x-ray re vealed no acute pulmonary process. Evidence of COPD with hyperinflation. CAT scan of the chest revealed no significant consolidation. Minimal infiltrate in the right midlung. There is a right mid and left upper lobe pulmonary nodules measuring 1.8 cm in the posterior mid left lung and 1.2 cm in the right middle lobe. Blood cultures revealed no growth. White count 10.0. Hemoglobin 13.3. Platelets 202. Sodium 140. Potassium 4.0. Bicarb 23. BUN 7. Creatinine 0.44. Troponin negative. Viral screen negative. Urine legionella screen negative. Pro-calcitonin 0.05. She was initiated on ceftriaxone, albuterol, Solu-Medrol. Heparin for DVT prophylaxis. She is seen today in consultation on the regular medical floor. She is currently sitting up in bed. Awake and alert in no acute distress. She is maintaining good O2 saturations in the 90s on room air. She's afebrile. Hemodynamically stable. Feeling much better. Hoping to go home. Review of Systems REVIEW OF SYSTEMS: CONSTITUTIONAL: Denies any recent significant weight loss or weight gain. EYES: Denies change in vision. EARS, NOSE, MOUTH, THROAT: Denies headaches, denies sore throat. CARDIOVASCULAR: Denies chest pain, palpitations or syncopal episodes. RESPIRATORY: Positive for shortness of breath, no cough, congestion or hemoptysis. GASTROINTESTINAL: Denies change in appetite, denies abdominal pain GENITOURINARY: Denies hematuria, denies infections. MUSKULOSKELETAL: Denies pain, denies swelling. INTEGUMENTARY: Denies rash, denies eczema. NEUROLOGICAL: Denies recent memory loss, no recent seizure activity. PSYCHIATRIC: Denies anxiety, denies depression. HEMATOLOGIC/LYMPHATIC: Denies anemia, denies enlarged lymph nodes. Past Medical History Past Medical History: GERD/Reflux, Hyperlipidemia, Thyroid Disorder Additional Past Medical History / Comment(s): abnormal spot on left lung History of Any Multi-Drug Resistant Organisms: None Reported Past Surgical History: Section Additional Past Surgical History / Comment(s): colonoscopy. RHINOPLASTY Past Anesthesia/Blood Transfusion Reactions: No Reported Reaction Past Psychological History: No Psychological Hx Reported Smoking Status: Current every day smoker Past Alcohol Use History: Occasional Additional Past Alcohol Use History / Comment(s): SMOKES < 1 PPD SINCE AGE 22 Past Drug Use History: None Reported - Past Family History Mother Family Medical History: No Reported History Medications and Allergies Home Medications Medication Instructions Recorded Confirmed Type Atorvastatin [Lipitor] 20 mg PO HS 07/11/19 09/24/23 History Levothyroxine Sodium 100 mcg PO DAILY 01/03/20 09/24/23 History Hydroxychloroquine Sulfate 200 mg PO BID 09/24/23 09/24/23 History [Plaquenil] NIFEdipine XL [Procardia XL] 30 mg PO DAILY 09/24/23 09/24/23 History Nicotine 21Mg/24Hr Patch [Habitrol] 1 patch TRANSDERM DAILY PRN 09/24/23 09/24/23 History Albuterol Sulfate [Albuterol 2 puff INHALATION RT-Q6H #1 09/26/23 09/24/23 Rx Sulfate Hfa] Budesonide-Formot 160-4.5 Mcg 2 puff INHALATION BID #1 each 09/26/23 Rx [Symbicort 160-4.5 Mcg Inhaler] cefUROXime axetiL [Ceftin] 500 mg PO BID 3 Days #6 tab 09/26/23 Rx predniSONE 10 mg PO DIRECTED #30 tab 09/26/23 Rx Allergies Allergy/AdvReac Type Severity Reaction Status Date / Time No Known Allergies Allergy Verified 09/24/23 16:46 Physical Exam Vitals: Vital Signs Temp Pulse Pulse Resp BP Pulse Ox 09/26/23 09:29 84 09/26/23 09:17 80 09/26/23 07:08 97.7 F 72 17 135/64 94 L 09/26/23 01:35 97.8 F 77 18 109/66 93 L 09/25/23 19:55 97.3 F L 72 18 107/65 100 09/25/23 17:24 91 L 09/25/23 17:05 97.8 F 92 16 136/80 96 09/25/23 16:52 88 09/25/23 16:41 84 09/25/23 13:11 100 09/25/23 12:55 96 Intake and Output 09/25/23 09/26/23 09/26/23 22:59 06:59 14:59 Intake Total 650 Balance 650 Intake: Intake, IV Titration 650 Amount Sodium Chloride 0.9% 1, 600 000 ml @ 50 mls/hr IV . Q20H EMMANUEL Rx#:[id number] cefTRIAXone 2 gm In 50 Sodium Chloride 0.9% 50 ml @ 100 mls/hr IVPB Q24HR EMMANUEL Rx#:[id number] Other: Voiding Method Toilet Toilet # Voids 2 2 GENERAL EXAM: Alert, very pleasant 58-year-old female, on room air, comfortable in no apparent distress. HEAD: Normocephalic. EYES: Normal reaction of pupils, equal size. NOSE: Clear with pink turbinates. THROAT: No erythema or exudates. NECK: No masses, no JVD. CHEST: No chest wall deformity. LUNGS: Equal air entry with no crackles, wheeze, rhonchi or dullness. Diminished. CVS: S1 and S2 normal with no audible murmur, regular rhythm. ABDOMEN: No hepatosplenomegaly, normal bowel sounds, no guarding or rigidity. SPINE: No scoliosis or deformity SKIN: No rashes CENTRAL NERVOUS SYSTEM: No focal deficits, tone is normal in all 4 extremities. EXTREMITIES: There is no peripheral edema. No clubbing, no cyanosis. Peripheral pulses are intact. Results - Laboratory Findings CBC and BMP: 09/26/23 08:15 09/24/23 13:21 PT/INR, D-dimer D-Dimer 0.41 mg/L FEU (<0.60) 09/24/23 13:21 Abnormal lab findings: Abnormal Labs 09/24/23 09/24/23 09/26/23 13:21 13:21 08:15 MCV 101.1 H 106.1 H D Neutrophils # 8.8 H Lymphocytes # 0.9 L 0.8 L Creatinine 0.44 L Total Protein 8.4 H Albumin 5.1 H - Diagnostic Findings Chest x-ray: image reviewed CT scan - chest: image reviewed Assessment and Plan Assessment: Acute exacerbation of chronic obstructive pulmonary disease. No evidence of pneumonia. Pro-calcitonin 0.05. Viral screen negative. Legionella screen negative. History of pulmonary nodules being followed in the outpatient setting Chronic and ongoing tobacco dependence Hypertension Hyperlipidemia Hypothyroidism Plan: The patient was seen and evaluated Chest x-ray, CAT scan of the chest, labs and medications reviewed Educated regarding the importance of complete smoking cessation NicoDerm patch has been applied Stable for discharge from the pulmonary standpoint Procalcitonin negative, no need for antibiotics Continue her home pulmonary medications Complete a prednisone taper Keep her scheduled appointment in our office 10/11/2023 I have personally seen and examined the patient, performed the documentation and the assessment and plan as written. Number of minutes spent on the visit: 20.
--- NOTE | 2023-09-26 20:28 | DS ---
DISCHARGE SUMMARY FINAL DIAGNOSES: 1. Chronic obstructive pulmonary disease acute exacerbation with possible acute bronchopneumonia. 2. Gastroesophageal reflux disease. 3. Hypertension. 4. Hyperlipidemia. 5. Hypothyroidism. 6. Bilateral lung nodules, stable. 7. History of nicotine dependence. 8. No code, no CPR, no vent. DISCHARGE DISPOSITION: The patient will be discharged in stable condition, guarded prognosis. HISTORY OF PRESENT ILLNESS: This is a 58-year-old woman, who was admitted with COPD acute exacerbation, bronchopneumonia suspected, treated with antibiotics, improved significantly. Dr. Borrego cleared the patient for discharge. Recommend outpatient followup. PHYSICAL EXAMINATION: VITAL SIGNS: Stable. CARDIOVASCULAR: S1, S2. ABDOMEN: Soft. NERVOUS SYSTEM: No focal deficits. DISCHARGE ADVICE AND MEDICATIONS: Recommend Ceftin 500 p.o. b.i.d. for 3 days, Symbicort, prednisone taper, and follow up with Primary and Pulmonary as recommended. Once again, the patient will be discharged in a stable condition. Guarded prognosis. MMODL / IJN: [id number] /
== END 2023-09-26 13:05 | disposition home or self-care (01) | DRG 190 ==
LOC: EC 12:52 → 1SOBS 17:08 → 4SSUR 18:33
PROVIDERS: ADMIT Hospitalist; ATTEND Hospitalist
DX: J44.0 Chronic obstructive pulmonary disease with (acute) lower respiratory infection (principal); J18.0 Bronchopneumonia, unspecified organism; J44.1 Chronic obstructive pulmonary disease with (acute) exacerbation; E03.9 Hypothyroidism, unspecified; E78.5 Hyperlipidemia, unspecified; F17.210 Nicotine dependence, cigarettes, uncomplicated; R91.8 Other nonspecific abnormal finding of lung field; F41.9 Anxiety disorder, unspecified; I11.0 Hypertensive heart disease with heart failure; Z66 Do not resuscitate; K21.9 Gastro-esophageal reflux disease without esophagitis; I50.9 Heart failure, unspecified; Z79.51 Long term (current) use of inhaled steroids; Z79.890 Hormone replacement therapy; Z79.899 Other long term (current) drug therapy
CPT/HCPCS: 36415; 71046; 71250; 80048; 80053; 84145; 84484; 85025; 85379; 87040; 87449; 87636; 93005; 94640; 96361; 96365; 96366; 96367; 96375; 99291

== ENCOUNTER → 2023-09-27 | Outpatient (CLI) | payer BC ==
[2023-09-27 15:54] LABS: Blood Urea Nitrogen 7.6 mg/dL (9.0-27.0); Calcium 9.6 mg/dL (8.7-10.3); Carbon Dioxide 25.6 mmol/L (21.6-31.8); Chloride 106 mmol/L (96-109); Glucose 85 mg/dL (70-110); Potassium 4.1 mmol/L (3.5-5.5); Sodium 144 mmol/L (135-145)
[2023-09-27 16:18] LABS: Basophils # (A) 0.03 X 10*3/uL (0.00-0.10); Basophils % (A) 0.3 %; Eosinophils # (A) 0.59 X 10*3/uL (0.04-0.35); Eosinophils % (A) 6.3 %; HCT 42.7 % (37.2-46.3); HGB 13.7 g/dL (12.0-15.0); Lymphocytes # (A) 1.82 X 10*3/uL (0.90-5.00); Lymphocytes % (A) 19.3 %; MCH 32.8 pg (27.0-32.0); MCHC 32.1 g/dL (32.0-37.0); MCV 102.2 FL (80.0-97.0); Mean Platelet Volume 10.5 FL (9.5-12.2); Monocytes # (A) 0.44 X 10*3/uL (0.20-1.00); Monocytes % (A) 4.7 %; NRBC Per 100 WBC 0 X 10*3/uL (0.00-0.01); Neutrophils # (A) 6.51 X 10*3/uL (1.80-7.70); Neutrophils % (A) 69.1 %; Platelet Count 248 X 10*3/uL (140-440); RBC 4.18 X 10*6/uL (4.10-5.20); WBC 9.42 X 10*3/uL (4.50-10.00)
== END | disposition home or self-care (01) ==
LOC: LABWHC1 09:14
PROVIDERS: ATTEND Hospitalist
DX: D64.9 Anemia, unspecified (principal)
CPT/HCPCS: 36415; 80048; 85025

== ENCOUNTER → 2023-10-04 | Outpatient (CLI) | payer BC ==
--- NOTE | 2023-10-04 11:34 | CT ---
EXAMINATION TYPE: CT chest w con DATE OF EXAM: 10/04/2023 COMPARISON: 09/25/2023 HISTORY: nodule CT DLP: 129.1 mGycm, Automated exposure control for dose reduction was used. CONTRAST: Performed injected with 100 mL of Isovue 300. TECHNIQUE: Axial images were obtained at 5 mm thick sections. Reconstructed images are reviewed on [employer] computer in the coronal plane. FINDINGS: Portion of the thyroid visualized is normal. There is a spiculated area within the left posterior lateral upper lung field measuring 0.7 x 1.2 cm. This appears to be similar to the prior examination. There is some mild irregular thickening along the major fissure bilaterally. The previous right middl e lobe 1.2 cm density is not identified. No enlarged mediastinal or hilar adenopathy is evident. The ascending aorta diameter at the level o f the main pulmonary artery is 3.2 cm. The main pulmonary artery diameter at the bifurcation is 2.[address] sections are obtained through the upper abdomen. Abdomen is essentially unremarkable. IMPRESSION: 1. Persistent suspicious spiculated area posterior left upper outer field. 2. Resolving right middle lobe density. 3. There may be some developing irregular thickening along the major fissures. 4. Fleischner criteria suggests CT at 3 months follow-up.
== END | disposition home or self-care (01) ==
LOC: RADCTMAIN 07:44
PROVIDERS: ATTEND Internal Medicine Critical Care Medicine
DX: J98.4 Other disorders of lung (principal); R91.1 Solitary pulmonary nodule
CPT/HCPCS: 71260; Q9967

== ENCOUNTER → 2024-04-04 | Outpatient (CLI) | payer BC ==
--- NOTE | 2024-04-04 14:43 | CT ---
EXAMINATION TYPE: CT chest w con CT DLP: 272 mGycm, Automated exposure control for dose reduction was used. DATE OF EXAM: 04/04/2024 1:12 PM COMPARISON: Multiple CT chest most recent 10/04/2023. CLINICAL INDICATION:Female, 58 years old with history of R91.1 SPNN; PHH, nodule TECHNIQUE: Multiple axial images were obtained through the chest following the administration of 100 cc of Isovue 300. . Coronal and sagittal reformats reviewed. FINDINGS: LUNGS/ PLEURA: Left upper lung spiculated scarring/pulmonary nodule is similar morphology to the back to at least 08/27/2022. There is somewhat spiculated peripheral groundglass and more of a central shad id portion measuring again demonstrated. The bulk of the lesion measures 1.5 x 1.7 cm (series 4, imag e 24). There is centrilobular emphysema changes throughout the lungs. No focal consolidation, pneumot horax or pleural effusion. No new pulmonary nodules. There is some linear scarring along the right nancy ng base to the diaphragm. AIRWAY: Patent and unremarkable. HEART: Size within normal limits. No pericardial effusion. MEDIASTINUM: No gross evidence of adenopathy. VASCULATURE: Atherosclerotic calcifications are present throughout the aorta and its branches. MUSCULOSKELETAL: Mild disc degeneration changes are present throughout the thoracolumbar spine. SOFT TISSUES/LYMPH NODES: Unremarkable. LOWER NECK: No significant findings. UPPER ABDOMEN: No significant findings. IMPRESSION: Stable left upper lung pulmonary nodule/scarring with somewhat spiculated borders dating back to at least 08/27/2022. No new suspicious pulmonary nodules. Continued surveillance recommended.
== END | disposition home or self-care (01) ==
LOC: RADCTMAIN 11:00
PROVIDERS: ATTEND Internal Medicine Critical Care Medicine
DX: J98.4 Other disorders of lung (principal); R91.1 Solitary pulmonary nodule
CPT/HCPCS: 71260; Q9967

== ENCOUNTER → 2024-09-18 | Outpatient (CLI) | payer BC ==
--- NOTE | 2024-09-18 13:02 | CT ---
EXAMINATION TYPE: CT chest w con CT DLP: 278 mGycm, Automated exposure control for dose reduction was used. DATE OF EXAM: 09/18/2024 11:58 AM COMPARISON: Multiple CT chest with most recent 04/04/2024 CLINICAL INDICATION:Female, 59 years old with history of R91.1 LUNG NODULE; PHH, LUNG NODULES TECHNIQUE: Multiple axial images were obtained through the chest following the administration of 100 cc of Isovue 300. . Coronal and sagittal reformats reviewed. FINDINGS: LUNGS/ PLEURA: Increasing size of the posterior left upper lobe spiculated opacity measuring 2.2 x 1. 7 cm (series 4, 23). There appears to be increasing more solid component along its posterior aspect. Previously measured 1.5 x 1.7 cm. There is centrilobular emphysema changes throughout the lungs. No n ew suspicious lesion. No focal consolidation, pneumothorax or pleural effusion. No new pulmonary nodu les. There is some stable linear scarring along the right lung base to the diaphragm. AIRWAY: Patent and unremarkable. HEART: Size within normal limits. No pericardial effusion. MEDIASTINUM: No gross evidence of adenopathy. VASCULATURE: Atherosclerotic calcifications are present throughout the aorta and its branches. No th oracic aortic aneurysm. MUSCULOSKELETAL: Mild disc degeneration changes are present throughout the thoracolumbar spine. SOFT TISSUES/LYMPH NODES: Unremarkable. LOWER NECK: No significant findings. UPPER ABDOMEN: No significant findings. IMPRESSION: Increasing size and more solid appearance involving the posterior aspect of a posterior left upper lo be 2.2 cm nodular opacity. PET/CT is recommended. [facility], , 09/18/2024 12:59 PM
== END | disposition home or self-care (01) ==
LOC: RADCTMAIN 11:01
PROVIDERS: ATTEND Internal Medicine Critical Care Medicine
DX: R91.8 Other nonspecific abnormal finding of lung field (principal)
CPT/HCPCS: 71260; Q9967

== ENCOUNTER 2024-10-05 13:05 | Day surgery (SDC) | payer BC ==
[2024-10-03 10:34] VITALS: BMI 20.5
[~2024-10-05 13:05] MED LIST changes: -LIDOCAINE 1% 20 ML VIAL (10MG/ML) FOR IV START INTRADERMA PRN
--- NOTE | 2024-10-05 13:50 | CT ---
EXAMINATION TYPE: CT Chest ION protocol DATE OF EXAM: 10/05/2024 COMPARISON: Multiple CT chest with most recent 09/18/2024 CLINICAL INDICATION: Female, 59 years old with history of R91.1 Solitary Pulmonary Nodule; PHH, ION B RONCHOSCOPY TECHNIQUE: CT scan of the thorax is performed without IV contrast. CT DLP: 305 mGycm Automated exposure control for dose reduction was used. FINDINGS: LUNGS/ PLEURA: Increasing size of the posterior left upper lobe spiculated opacity measuring 2.5 x 2. 0 cm, previously 2.2 x 1.7 cm (series 3, image 224). There is some central cavitation redemonstrated. This abuts the major fissure along its posterior aspect. There is centrilobular emphysema changes th roughout the lungs. No new suspicious lesion. No focal consolidation, pneumothorax or pleural effusio n. No new pulmonary nodules. Basilar regions of linear scarring redemonstrated. Additional linear ate lectasis within the lingula. AIRWAY: Patent and unremarkable. HEART: Size within normal limits. No pericardial effusion. MEDIASTINUM: No gross evidence of adenopathy. VASCULATURE: Atherosclerotic calcifications are present throughout the aorta and its branches. No th oracic aortic aneurysm. MUSCULOSKELETAL: Mild disc degeneration changes are present throughout the thoracolumbar spine. SOFT TISSUES/LYMPH NODES: Unremarkable. LOWER NECK: No significant findings. UPPER ABDOMEN: No significant findings. IMPRESSION: 1. Increasing size of spiculated cavitary lesion within the posterior aspect of the left upper lobe measuring up to 2.5 cm. This is again concerning for possible malignancy versus other etiologies. 2. COPD changes. [facility], , 10/05/2024 1:48 PM
[2024-10-05] MEDS: IV FLUID CONTINUATION 1,000 ML IV ONE (13:58)
[2024-10-05] MEDS: LACTATED RINGERS 1,000 ML IV SCH (13:58)
[2024-10-05] MEDS ORDERED: ROCURONIUM 10 MG/ML (5 ML VIAL) IV ONE (14:16)
[2024-10-05] MEDS ORDERED: PHENYLEPHRINE 10 MG/ML VIAL ONE (14:16)
[2024-10-05] MEDS ORDERED: KETAMINE HCL IN 0.9 % NACL 50 MG/5 ML SYRINGE ONE (14:16)
[2024-10-05] MEDS ORDERED: LIDOCAINE 1% INJ 10MG/ML (20 ML MDV) ONE (14:16)
[2024-10-05] MEDS ORDERED: PROPOFOL 10 MG/ML 20 ML VIAL IV ONE (14:16)
[2024-10-05] MEDS ORDERED: NEOSTIGMINE 1 MG/ML 10 ML VIAL ONE (14:16)
[2024-10-05] MEDS ORDERED: GLYCOPYRROLATE 0.2 MG/ML 2 ML VIAL ONE (14:16)
[2024-10-05] MEDS ORDERED: SUCCINYLCHOLINE CHLORIDE 200 MG/10 ML VIAL IV ONE (14:16)
[2024-10-05] MEDS ORDERED: fentaNYL (PF) 50 MCG/ML 2 ML AMP ONE (14:16)
--- NOTE | 2024-10-05 15:31 | FL ---
Fluoroscopy INDICATION: Pain FINDINGS: Fluoroscopy time: 1 minute 52.1 seconds. Total dose area product (DAP) in uGy*m?, mGy*cm? (or similar): 1.9062 Images obtained: 11. Images document a bronchoscopy left upper lung field IMPRESSION: 1. Documentation of fluoroscopy. [facility], , 10/05/2024 3:29 PM
--- NOTE | 2024-10-05 15:32 | P.PCN ---
Date of Procedure: 10/05/24 Operative Findings: Preoperative Diagnosis: Left upper lobe nodule, enlarging Postoperative Diagnosis: Left upper lobe pulmonary nodule Left paratracheal and subcarinal lymphadenopathy Procedure(s) Performed: Flexible bronchoscopy Robotic-assisted bronchoscopy and addition to radial ultrasound evaluation of the left upper lobe nodule Robotic-assisted transbronchial transbronchial needle aspirate, transbronchial biopsies, transbronchial brushings and bronchoalveolar lavage of the left upper lobe nodule Endobronchial ultrasound Transbronchial needle aspirate of left paratracheal and subcarinal lymphadenopathy Anesthesia: IVONNEA Surgeon: Lenore Avina Estimated Blood Loss (ml): 0 Pathology: other Condition: stable Disposition: same day Operative Findings: A physical exam was performed. Informed consent was obtained from the patient after explaining all the risks (pneumothorax, life threatening bleeding, infection and adverse effects due to medications), benefits and alternatives to the procedure which the patient appeared to understand and so stated. The patient was connected to the monitoring devices. General anesthesia was induced and the patient was intubated by anesthesia. A final timeout was performed and the procedure confirmed by the attending staff bronchoscopist. The bronchoscope was inserted and the airway examined. Airway examination shows that the distal trachea, Right upper lobe and middle lobe and lower lobe bronchi was all within normal limits. The left mainstem bronchus is within normal limits. Examination of left lower lobe was within normal limits. The left upper lobe bronchus and the lingular segment was also patent within normal limits. The flexible bronchoscope was removed and the robotic bronchoscope was inserted. Registration was completed. I next guided the robotic bronchoscope using the navigation system into the left upper lobe pulmonary nodule and the navigation was done through the apical segment of the left upper lobe. Once in proper position, the bronchoscope was frozen. The radial EBUS probe was placed through the bronchoscope and confirmed abnormal u/s images vs normal lung. A needle was placed through the working channel and another fluoroscopic guidance, we sampled the area in the left upper lobe pulmonary nodule. We then used a cloud biopsy pattern with ultrasound confirmation for 2 additional passes with the needle. Rapid onsite cytology evaluation was done and the samples were found to be adequate. Following that, a forceps were next introduced through working channel and extended the appropriate distance and 2 transbronchial biopsies were performed using fluoroscopic guidance. The u/s probe was then reinserted to confirm location. When confirmed this process was repeated for a total of 6 transbronchial biopsies. Following that, a brush was extended to the involved area and transbronchial brushing of the left upper lobe pulmonary nodule was done. Following that, a total of 40 cc of saline was infused into the left upper lobe lobe lobe and approximately 10 cc of saline was aspirated and the bronchioloalveolar lavage was sent for cytologic evaluation. Following that, ION bronchoscope was removed. The endobronchial ultrasound was inserted and a full evaluation of the mediastinal lymph nodes was done. Upon careful investigation with endobronchial ultrasound, a 13 x 9 mm subcarinal (station 7) mediastinal lymph node, and another 10 x 10 mm left paratracheal lymph node (station 4L). Using a 22-gauge position needle, transbronchial needle aspirate of the station 7 lymph node was done and a total of 3 passes and station 4L lymph node was done with a total of 4 passes. The rest of the mediastinal stations were essentially within normal limits. The endobronchial ultrasound was taken without any complications. Flex. bronchoscope was inserted and regular suctioning was done. At the completion of the procedure, no residual secretions or bloody material within the airway. The bronchoscope was removed. The patient was extubated. FINDINGS: 1. The airways appeared normal 2 Successful navigation, ultrasonographic identification, and biopsies of left upper lobe pulmonary nodule 3. The the radial ultrasound view was concentric 4. Endobronchial ultrasound with biopsy of the left paratracheal station 4L and subcarinal station 7 lymph nodes done RECOMMENDATIONS: Await pathology and cytology results The referring physician will be alerted to the results when available. The patient was advised to follow up with the referring physician with the biopsy results Patient will be called with results.
[2024-10-05 15:40] VITALS: TEMP 97.7
--- NOTE | 2024-10-05 16:08 | XR ---
EXAMINATION TYPE: XR chest 1V DATE OF EXAM: 10/05/2024 4:00 PM COMPARISON: Chest radiographs from 09/25/2023 CLINICAL INDICATION: Female, 59 years old with history of Postbiopsy; [facility] TECHNIQUE: XR chest 1V Frontal view of the chest. FINDINGS: Lungs/Pleura: Left upper lobe airspace opacities. There is no evidence of pleural effusion, focal con solidation, or pneumothorax. Pulmonary vascularity: Unremarkable. Heart/mediastinum: Cardiomediastinal silhouette is unremarkable. Musculoskeletal: No acute osseous pathology. IMPRESSION: After pulling airspace opacities correlate for postprocedural changes. No evidence for pneumothorax [facility], , 10/05/2024 4:05 PM
[2024-10-05 16:50] VITALS: RESP 16
[2024-10-05 17:05] VITALS: BP 124/76; PULSE 65
== END 2024-10-05 17:19 | disposition home or self-care (01) ==
LOC: ORWHC2ENDO 13:05
PROVIDERS: ATTEND Internal Medicine Critical Care Medicine
DX: J98.4 Other disorders of lung (principal); R59.0 Localized enlarged lymph nodes; J44.9 Chronic obstructive pulmonary disease, unspecified; E03.9 Hypothyroidism, unspecified; E78.5 Hyperlipidemia, unspecified; I10 Essential (primary) hypertension; M19.90 Unspecified osteoarthritis, unspecified site; Z87.891 Personal history of nicotine dependence; Z79.890 Hormone replacement therapy
CPT/HCPCS: 87798 ×3; 87496; 87498; 87529; 88108; 88305; 88342; 87502; 87634; 88341; 87070; 87205; 87116; 87102; 87206; 87635; 71045; 71250; 31628; 31629; 31623; 31624; 31652; J0330; J2710; J2003; J3010; J2704; J2371; J1596; S2900

== ENCOUNTER → 2024-10-20 | Outpatient (CLI) | payer BC ==
--- NOTE | 2024-10-21 08:49 | PE ---
EXAMINATION TYPE: PET CT fusion skull to thigh DATE OF EXAM: 10/20/2024 CLINICAL INDICATION:Female, 59 years old with history of R91.1 LUNG NODULE; TECHNIQUE: Following the intravenous administration of 13.4 mCi of F-18 FDG, whole body images are performed from the skull base to the midthigh. Images are reviewed on the computer in the coronal, a xial, and sagittal planes. Reconstructed rotating images are created on independent workstation and reviewed on the computer. A non-contrast CT is performed in conjunction with the PET scan. Glucose level 96 mg/dL CT DLP: 159.01 mGycm, Automated exposure control for dose reduction was used. COMPARISON: CT 10/05/2024 09/18/2024, PET/CT None, MRI: None FINDINGS: Mediastinal SUV mean is 1.7. Hepatic parenchyma SUV mean is 1.9. SKULL BASE AND NECK: No suspicious radiotracer activity. CHEST, MEDIASTINUM, AND HILAR REGION: Suspicious uptake identified examples include: Left upper lung nodule with suspected post biopsy change measuring 21 x 18 mm Max SUV 7.8. Right AP window focus of uptake likely within lymph node max SUV 4.3 measuring 6 mm Left pulmonary hilum lymph node max SUV 5.2, measurements are difficult without IV contrast. Groundglass nodule measuring 9 mm or inferiorly and anterior to the dominant nodule Max SUV 2.2. ABDOMEN AND PELVIS: No suspicious radiotracer activity. MUSCULOSKELETAL STRUCTURES: No suspicious radiotracer activity. OTHER CT: * Carotid bifurcation atherosclerosis. * Coronary atherosclerosis. * Mild emphysema. IMPRESSION: Left upper lobe FDG avid pulmonary nodule compatible with primary malignancy with metastatic disease to the AP window and left pulmonary hilum lymph nodes. Additional groundglass opacity in the left low er lung possibly infectious/inflammatory etiology. Attention follow-up imaging. [facility], , 10/21/2024 8:47 AM
== END | disposition home or self-care (01) ==
LOC: RADPETMAIN 09:40
PROVIDERS: ATTEND Internal Medicine Critical Care Medicine
DX: R91.1 Solitary pulmonary nodule (principal); J43.9 Emphysema, unspecified
CPT/HCPCS: 78815; A9552

== ENCOUNTER → 2024-11-04 | Outpatient (CLI) | payer BC ==
--- NOTE | 2024-11-04 16:20 | MR ---
EXAMINATION TYPE: MR brain wo/w con DATE OF EXAM: 11/04/2024 2:44 PM COMPARISON: None. CLINICAL INDICATION: Female, 59 years old with history of C34.12 MALIGNANT NEOPLASM OF UPPER LOBE, LE FT BRON, Lung cancer. TECHNIQUE: Multi planar, multi sequence imaging was performed through the brain including: T1, T2, In version recovery, susceptibility weighted imaging and gradient echo imaging and Diffusion weighted im aging. The patient was then given intravenous contrast and multi planar, T1 fat-saturation images wer e obtained. IV Contrast: 4.5 mL Gadobutrol FINDINGS: The pino-white junctions, ventricular system, basal cisterns appear unremarkable. Diffusion-weighted imaging shows no evidence of restricted diffusion to suggest acute/subacute infarct. Intracranial ar terial flow voids are maintained. Midline structures show no abnormality. Scattered foci of high T2 s ignal intensity are seen within the periventricular white matter. The susceptibility weighted images do not reveal any evidence for micro-hemorrhage. After administration of gadolinium, no abnormal enha ncement is seen. Left cerebellar hemisphere vascular malformation/abdominal venous anomaly. The bone marrow signal is within normal limits. Paranasal sinuses and mastoid air cells: Mild scattered paranasal sinus disease. Trace high T2 signal and mastoid air cells. Visualized orbits: Orbital contents are intact. IMPRESSION: 1. No evidence of intracranial mass, acute/subacute infarct, or abnormal enhancement. 2. Nonspecific white matter changes, likely related to small vessel ischemic disease. [facility], , 11/04/2024 4:17 PM
== END | disposition home or self-care (01) ==
LOC: RADMRIMAIN 13:16
PROVIDERS: ATTEND Thoracic Surgery (Cardiothoracic Vascular Surgery)
DX: C34.12 Malignant neoplasm of upper lobe, left bronchus or lung (principal); R90.82 White matter disease, unspecified
CPT/HCPCS: 70553; A9585

== ENCOUNTER → 2025-02-02 | Outpatient (CLI) | payer BC ==
[2025-02-02 11:41] LABS: African American GFR (CKD) 65 (>60 ml/min/1.73 sqM); Blood Urea Nitrogen 12 mg/dL (7-17); Non-African American GFR(CKD) 57 (>60 ml/min/1.73 sqM)
--- NOTE | 2025-02-02 13:30 | CT ---
EXAMINATION TYPE: CT chest w con DATE OF EXAM: 02/02/2025 12:02 PM COMPARISON: Pet/CT 10/20/2024. CLINICAL INDICATION: Female, 59 years old with history of C34.12 lung ca; PHH, LUNG CA TECHNIQUE: Multiple axial images were obtained through the chest. Sagittal and coronal reformats were created for review. MIP was performed on a separate workstation. Contrast used:80 ML mL of Isovue 300 with IV Contrast (None if empty) Oral contrast used: (None if empty) CT DLP: 238 mGycm, Automated exposure control for dose reduction was used. FINDINGS: LUNGS/ PLEURA: There remains a left upper lobe parenchymal abnormality just anterior to the fissure h as slightly different morphology compared to prior. The left soft tissue with a elongated linear morp hology compared to prior. There measuring on coronal imaging to 16 x 10 mm previously 15 x 14 mm on 1 11/18/2023. Is mild to moderate centrilobular emphysema changes. Intralobular septal thickening noted. Additional spiculated nodule more inferiorly is remains present measuring 11 x 8 mm. No focal consol idation, pneumothorax or pleural effusion. AIRWAY: Patent and unremarkable. HEART: Size within normal limits. Mild coronary artery calcifications present. MEDIASTINUM: The window lymph node which is FDG avid remains present measuring 6 mm in short axis. Le ft pulmonary hilum lymph node which is FDG avid is poorly visualized lymph node measuring 8 mm is pre sent series 3 image 33. VASCULATURE: No aortic aneurysm. MUSCULOSKELETAL: Mild disc degeneration changes are present throughout the thoracolumbar spine second maria m to osteophyte formation and facet joint arthropathy. SOFT TISSUES/LYMPH NODES: Unremarkable. LOWER NECK: No significant findings. UPPER ABDOMEN: No significant findings. IMPRESSION: 1. Abnormality along the left major fissure and more inferior pulmonary nodules remain present abnor mality along the fissure is not significantly changed compared to prior. The more inferior pulmonary nodule has increased soft tissue fullness compared to prior measuring 11 x 8 mm in today's exam. 2. There remains AP window lymph node and pulmonary hilum lymph node present. 3. Pulmonary edema. [facility], , 02/02/2025 1:28 PM
== END | disposition home or self-care (01) ==
LOC: RADCTMAIN 10:58
PROVIDERS: ATTEND Internal Medicine Hematology & Oncology
DX: C34.12 Malignant neoplasm of upper lobe, left bronchus or lung (principal); J44.9 Chronic obstructive pulmonary disease, unspecified; E03.9 Hypothyroidism, unspecified; R91.8 Other nonspecific abnormal finding of lung field; J81.1 Chronic pulmonary edema
CPT/HCPCS: 82565; 84520; 71260; Q9967

== ENCOUNTER 2025-04-03 07:30 | Inpatient (IN) | payer BC ==
[2025-04-05] MEDS: LACTATED RINGERS 1,000 ML IV SCH (06:14)
[2025-04-05] MEDS: DEXAMETHASONE SOD PHOSPHATE 4 MG/ML 1 ML VIAL IV ONE (06:14)
[2025-04-05] MEDS: ONDANSETRON 4 MG/2 ML VIAL IVP ONE (06:14)
[2025-04-05] MEDS: LACTATED RINGERS 1,000 ML IV ONE ×3 (06:30→08:44)
[2025-04-05] MEDS: MIDAZOLAM 2 MG/2 ML VIAL IV ONE (06:59)
[2025-04-05] MEDS: fentaNYL (PF) 50 MCG/ML 2 ML AMP IVP PRN (06:59)
[2025-04-05] MEDS ORDERED: HYDROmorphone (PF) 1 MG/ML ONE (07:30)
[2025-04-05] MEDS ORDERED: NEOSTIGMINE 1 MG/ML 10 ML VIAL ONE (07:30)
[2025-04-05] MEDS ORDERED: GLYCOPYRROLATE 0.2 MG/ML 2 ML VIAL ONE (07:30)
[2025-04-05] MEDS ORDERED: LIDOCAINE 1% INJ 10MG/ML (20 ML MDV) ONE (07:30)
[2025-04-05] MEDS ORDERED: DEXAMETHASONE SOD PHOSPHATE 4 MG/ML 1 ML VIAL ONE (07:30)
[2025-04-05] MEDS ORDERED: ROPIVACAINE 5 MG/ML 30 ML VIAL ONE (07:30)
[2025-04-05] MEDS ORDERED: ROCURONIUM 10 MG/ML (5 ML VIAL) IV ONE (07:30)
[2025-04-05] MEDS ORDERED: SUCCINYLCHOLINE CHLORIDE 200 MG/10 ML VIAL IV ONE (07:30)
[2025-04-05] MEDS ORDERED: fentaNYL (PF) 50 MCG/ML 2 ML AMP ONE (07:30)
[2025-04-05] MEDS ORDERED: PHENYLEPHRINE 10 MG/ML VIAL ONE (07:30)
[2025-04-05] MEDS ORDERED: KETAMINE HCL IN 0.9 % NACL 50 MG/5 ML SYRINGE ONE (07:30)
[2025-04-05] MEDS ORDERED: WATER FOR INJECTION, STERILE 10 ML VIAL IV ONE (07:30)
[2025-04-05] MEDS ORDERED: KETOROLAC 15 MG/ML 1 ML VIAL ONE (07:30)
[2025-04-05] MEDS ORDERED: MIDAZOLAM 2 MG/2 ML VIAL ONE (07:30)
[2025-04-05] MEDS ORDERED: ONDANSETRON 4 MG/2 ML VIAL ONE (07:30)
[2025-04-05] MEDS ORDERED: PROPOFOL 10 MG/ML 20 ML VIAL IV ONE (07:30)
[2025-04-05] MEDS ORDERED: ePHEDrine 50 MG/ML 1 ML VIAL ONE (07:30)
[2025-04-05] MEDS: ceFAZolin 2 GM in DEXTROSE 5% IN WATER 50 ML IVPB PRN (07:35)
[2025-04-05] MEDS: BUPIVACAINE (PF) 0.5% 30 ML VIAL SQ ONE ×2 (07:53→10:49)
--- NOTE | 2025-04-05 11:27 | P.OP ---
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 status post induction chemotherapy Postoperative Diagnosis: Same Procedure(s) Performed: Robotic assisted thoracoscopic left upper lobectomy with mediastinal lymph node dissection Anesthesia: WANDY Surgeon: Anatoliy Howell Supervisor [employer]1: Giovani Guaman Estimated Blood Loss (ml): 20 Pathology: other (Left upper lobe for permanent section and frozen section of bronchial margin; lymph node stations L5, L6, level 7, L8, L10, L11 for permanent section) Condition: stable Disposition: PACU Indications for Procedure: 59-year-old female presented with large tumor of posterior apical region of left upper lobe adjacent to superior segment of left lower lobe. She had positive uptake on PET and enlarged AP window and hilar lymph nodes. She underwent diagnostic bronchoscopy as well as EBUS. She was staged as clinical stage IIIa and treated with induction chemotherapy with excellent response. She was then referred for left upper lobectomy. Elective surgery was scheduled. Operative Findings: Fissures were near complete. There was significant postchemotherapy inflammatory response in the hilar and mediastinal lymph nodes. Tumor mass itse lf was relatively minimal with residual scar tissue evident grossly. Description of Procedure: Patient was brought to the operating room and placed supine on the operating table. General anesthesia was induced. She was intubated with a 35 mm double- lumen endotracheal tube and this was positioned with fiberoptic bronchoscopy and secured. No endobronchial lesions were noted. Patient was turned in the right lateral decubitus position and appropriately positioned for robotic lobectomy. The left chest was sterilely prepped and draped. Single lung ventilation was in itiated. Initial incision was made in the eighth interspace overlying the mid axillary line. 8 mm robotic port was placed and after confirming presence of the pleural space CO2 insufflation was begun. 212 mm robotic ports were placed anteriorly and posteriorly to the initial port and a second 8 mm port was put posteriorly at the level of the fissure between the left upper lobe and the superior segment of the left lower lobe. Working port was placed at the level of the diaphragm between the 2 most anterior ports. The robot was docked. Chest was explored with findings as noted above. Dissection was begun in the fissures and we were able to dissected out 1 branch of the pulmonary artery leading to the left upper lobe posteriorly as well as the lingular branch. These were both divided with robotic vascular stapler. Hilar lymph nodes were carefully dissected out and collected and sent as L11 lymph nodes. The inferior pulmonary ligament was taken down with electrocautery. There was no evidence of L9 lymph nodes. Dissection was carried over the inferior pulmonary vein and the level 7 lymph nodes were resected. Level 8 lymph nodes were resected. Dissection was carried between the mainstem bronchus and pulmonary artery and the L10 lymph nodes were resected. Dissection was carried superiorly and the L6 lymph nodes were resected. Dissection was now moved anteriorly and the superior pulmonary vein was dissected out ligated and divided with the robotic stapler. Dissection was carried onto the bronchus. Dissection was very difficult due to matted lymph nodes. Further L11 lymph nodes were resected. Prior to completely dissecting out the bronchus we took the first branch of the pulmonary artery leading to the left upper lobe ligating and dividing this with a robotic vascular stapler. We are now able to successfully encircle the left upper lobe bronchus and divided with a robotic green stapler. There was 1 remaining branch of the pulmonary artery superiorly and this was dissected out and ligated and divided with a robotic vascular stapler. Lobectomy specimen was now completely freed and placed in an Endo Catch bag and retracted inferiorly. AP window lymph nodes were dissected out and resected and sent as L5 lymph nodes. The hilum was now completely free of any adenopathy. The robot was undocked and the working port incision enlarged to allow removal of the Endo Catch bag containing the specimen. Lobectomy specimen was examined on the back table and sent for frozen section of the bronchial margin which returned negative. The lung was expanded under thoracoscopic visualization and the bronchial stump checked under water for air leak which was not present. 28 Chinese chest tube was placed through separate stab incision and positioned posterior apically. Was secured with 0 Ethibond suture. Lung was inflated by anesthesia under thoracoscopic visualization and the patient placed back onto lung ventilation. The incisions were closed with layers of Vicryl suture. Skin glue and dry sterile dressings were applied. The patient was turned supine extubated and transferred to recovery room in stable condition.
[2025-04-05] MEDS: HYDROmorphone 0.5 MG/0.5 ML SYRINGE IVP PRN (11:38)
[2025-04-05] MEDS ORDERED: IPRATROPIUM-ALBUTEROL 3 ML NEB IH PRN (11:48)
[2025-04-05] MEDS ORDERED: ACETAMINOPHEN TAB 325 MG TAB PO PRN (11:48)
[2025-04-05] MEDS ORDERED: bisacodyL 10 MG SUPP RECTAL PRN (11:48)
--- NOTE | 2025-04-05 11:50 | XR ---
EXAMINATION TYPE: XR chest 1V portable DATE OF EXAM: 04/05/2025 11:37 AM COMPARISON: Chest radiographs from 10/05/2024. CLINICAL INDICATION: Female, 59 years old with history of post lobectomy; [facility] TECHNIQUE: XR chest 1V portable Frontal view of the chest. FINDINGS: Lungs/Pleura: There is flattening of the diaphragm with increased lucency of the lungs. No evidence o f pneumothorax, pleural effusion or focal consolidation. Pulmonary vascularity: Unremarkable. Heart/mediastinum: Cardiomediastinal silhouette is unremarkable. Musculoskeletal: No acute osseous pathology. Other findings: None Lines/Tubes: Left thoracotomy tube is present without evidence of pneumothorax. IMPRESSION: Left chest tube without evidence of pneumothorax. COPD changes. [facility], , 04/05/2025 11:47 AM
[2025-04-05] MEDS: KETOROLAC 15 MG/ML 1 ML VIAL IVP SCH (13:32)
[2025-04-05] MEDS: DEXTROSE 5%-0.45% NACL 1,000 ML IV SCH (13:33)
[2025-04-05] MEDS: ONDANSETRON 4 MG/2 ML VIAL IVP PRN (14:14)
[2025-04-05] MEDS: HEPARIN SODIUM,PORCINE 5,000 UNIT/ML 1 ML VIAL SQ SCH (15:03)
[2025-04-05] MEDS: ceFAZolin 2 GM in DEXTROSE 5% IN WATER 50 ML IVPB SCH (15:03)
--- NOTE | 2025-04-05 15:30 | P.ANPRN ---
Procedure Note - Anesthesia - Nerve Block Performed Left Erector Spinae Single Time Out Performed: Yes (0659) Date of Procedure: 04/05/25 Procedure Start Time: 07:00 Procedure Stop Time: 07:01 Location of Patient: PreOp Indication: Acute Post-Operative Pain, Requested by Surgeon Specifically requested for management of pain by DrLibia: Anatoliy Howell Sedation Type: Sedate with meaningful contact maintained Preparation: Sterile Prep Position: Sitting Catheter: None Needle Types: Pajunk Needle Gauge: 21 Ultrasound used to visualize needle placement: Yes Ultrasound used to observe medication spread: Yes Injectate: 0.5% Ropivacaine (see comment for volume) (30cc) Blood Aspirated: No Pain Paresthesia on Injection Noted: No Resistance on Injection: Normal Image Stored and Saved: Yes Events: Uneventful and Well Tolerated
[2025-04-05] MEDS: IPRATROPIUM-ALBUTEROL 3 ML NEB IH SCH (15:31)
--- NOTE | 2025-04-05 15:31 | P.ANPRN ---
Procedure Note - Anesthesia - Invasive Line Right Arterial Line Time Out Performed: Yes (0659) Date of Procedure: 04/05/25 Time of Procedure: 07:04 Location of Patient: PreOp Preparation: Sterile Prep, Sterile Dressing Arterial Line Location: Radial (right) Ultrasound Used: Yes Purpose - Visualization and Identification of Vasculature: Yes Needle Guage: 20g Image Stored and Saved: Yes Narrative: Invasive line placement per sterile protocol utilized. attempt x1. lumen bled and flushed. secured and dressed.
[2025-04-05] MEDS: METOCLOPRAMIDE 5 MG/ML 2 ML VIAL IVP PRN (15:59)
--- NOTE | 2025-04-05 16:34 | P.CNPUL ---
History of Present Illness Consult date: 04/05/25 Requesting physician: Anatoliy Howell Reason for consult: other (Robotic assisted thoracoscopic left upper lobectomy with mediastinal lymph node dissection) Chief complaint: Lung cancer History of present illness: This is a 59-year-old female who normally sees Dr. Stern, patient was discovered to have left upper lobe large tumor in the posterior apical region, she had positive bronchoscopy for non-small cell lung cancer, her PET scan was positive and showed enlarged AP window and hilar lymph nodes. Patient had recent bronchoscopy and EBUS she was staged as clinical stage IIIa and treated with induction chemotherapy with excellent response. Hence oncology recommended left upper lobectomy which was done today, postoperatively patient was admitted to the medical floor, and I was asked to see her in consultation. Patient is doing well, relatively asymptomatic except for some pain and discomfort and a bit of nausea no shortness of breath no fever no chills no hemoptysis. Chest x- ray showed no evidence of pneumothorax, chest tube is already on waterseal, off suction. Review of Systems CONSTITUTIONAL: History of weight loss EYES: Denies change in vision. EARS, NOSE, MOUTH, THROAT: Denies headaches, denies sore throat. CARDIOVASCULAR: Denies chest pain, palpitations or syncopal episodes. RESPIRATORY: Chronic shortness of breath on exertion GASTROINTESTINAL: Denies change in appetite, denies abdominal pain GENITOURINARY: Denies hematuria, denies infections. MUSKULOSKELETAL: Denies pain, denies swelling. INTEGUMENTARY: Denies rash, denies eczema. NEUROLOGICAL: Denies recent memory loss, no recent seizure activity. PSYCHIATRIC: Denies anxiety, denies depression. HEMATOLOGIC/LYMPHATIC: Negative Past Medical History Past Medical History: Cancer, COPD, Hyperlipidemia, Thyroid Disorder Additional Past Medical History / Comment(s): dx. lung cancer in Sep.-had chemo recently, finished beginning of February, mild COPD, hx colon polyp. History of Any Multi-Drug Resistant Organisms: None Reported Past Surgical History: Section Additional Past Surgical History / Comment(s): Colonoscopy, rhinoplasty. bronchoscopy, left upper lobectomy 04/05/25 Past Anesthesia/Blood Transfusion Reactions: No Reported Reaction Additional Past Anesthesia/Blood Transfusion Reaction / Comment(s): Mom PONV., no hx. of transfusion reaction Past Psychological History: No Psychological Hx Reported Smoking Status: Former smoker Past Alcohol Use History: Rare Additional Past Alcohol Use History / Comment(s): Quit smoking in 2024 per patient, started smoking at age 22, < 1 ppd. Past Drug Use History: None Reported - Past Family History Mother Family Medical History: No Reported History Medications and Allergies Home Medications Medication Instructions Recorded Confirmed Type Levothyroxine Sodium 100 mcg PO QAM 01/03/20 04/03/25 History Cholecalciferol [Vitamin D3 (25 25 mcg PO DAILY 12/30/23 04/03/25 History Mcg = 1000 Iu)] [place]-3/Dha/Epa/Fish Oil [Fish Oil 1 each PO DAILY 12/30/23 04/03/25 History 1,000 mg Softgel] Vitamin B Complex 1 each PO DAILY 12/30/23 04/03/25 History Albuterol Inhaler [Ventolin Hfa 1 - 2 puff INHALATION Q6H PRN 04/03/25 04/03/25 History Inhaler] Atorvastatin [Lipitor] 20 mg PO HS 04/03/25 04/03/25 History Fluticasone/Umeclidin/Vilanter 1 inhalation INHALATION DAILY 04/03/25 04/03/25 History [Trelegy Ellipta 100-62.5-25] Allergies Allergy/AdvReac Type Severity Reaction Status Date / Time No Known Allergies Allergy Verified 04/03/25 16:11 Physical Exam Vitals: Vital Signs Temp Pulse Pulse Pulse Pulse Resp BP 04/05/25 16:26 04/05/25 16:23 86 04/05/25 15:00 97.5 F L 90 20 132/84 04/05/25 14:02 91 22 04/05/25 13:38 97.4 F L 91 22 127/79 04/05/25 12:51 78 16 107/62 04/05/25 12:36 78 16 144/66 04/05/25 12:21 82 16 107/64 04/05/25 12:06 74 16 114/74 04/05/25 11:51 85 16 129/61 04/05/25 11:36 87 16 133/68 04/05/25 11:21 97.3 F L 90 16 137/64 04/05/25 07:11 80 16 04/05/25 06:04 98.1 F 74 18 BP Pulse Ox 04/05/25 16:26 95 04/05/25 16:23 04/05/25 15:00 93 L 04/05/25 14:02 04/05/25 13:38 92 L 04/05/25 12:51 95 04/05/25 12:36 95 04/05/25 12:21 96 04/05/25 12:06 96 04/05/25 11:51 96 04/05/25 11:36 100 04/05/25 11:21 100 04/05/25 07:11 124/85 98 04/05/25 06:04 129/71 98 Intake and Output 04/05/25 04/05/25 04/05/25 06:59 14:59 22:59 Intake Total 400 2000 Output Total 460 Balance 400 1540 Intake: IV 400 1999 Output: Chest Tube Drainage 90 Chest Tube Left 90 Drainage 90 Left 90 Urine 260 Estimated Blood Loss 20 Other: Weight 52.5 kg 52.5 kg GENERAL EXAM: Revealed 59-year-old female frail looking in no distress HEAD: Normocephalic. EYES: Normal reaction of pupils, equal size. NOSE: Clear with pink turbinates. THROAT: No erythema or exudates. NECK: No masses, no JVD. CHEST: No chest wall deformity. LUNGS: Good breath sound bilaterally left-sided chest tube connected to Pleur- evac as noted CVS: S1 and S2 normal with no audible murmur, regular rhythm. ABDOMEN: No hepatosplenomegaly, normal bowel sounds, no guarding or rigidity. SKIN: No rashes CENTRAL NERVOUS SYSTEM: No focal deficits, tone is normal in all 4 extremities. EXTREMITIES: There is no peripheral edema. No clubbing, no cyanosis. Peripheral pulses are intact. Results - Diagnostic Findings Chest x-ray: image reviewed (As noted in HPI) Assessment and Plan Assessment: Impression: Status post Robotic assisted thoracoscopic left upper lobectomy with mediastinal lymph node dissection, postoperative day #0 for stage IIIa squamous cell lung cancer. History of COPD History of pulmonary nodules being followed in the outpatient setting Hypertension Hyperlipidemia Hypothyroidism Recommendation: Continue present supportive care measures Continue incentive spirometry Continue chest tube to waterseal for now and repeat chest x-ray in a.m. Resume home bronchodilators GI and DVT prophylaxis Titrate oxygen accordingly Will continue to follow Time with Patient: Greater than 30
[2025-04-05] MEDS: traMADol 50 MG TAB PO PRN (20:58)
[2025-04-05] MEDS: ATORVASTATIN 20 MG TAB PO SCH (20:58)
[2025-04-06] MEDS: LEVOTHYROXINE 100 MCG TAB PO SCH (06:49)
[2025-04-06] MEDS: PANTOPRAZOLE 40 MG TABLET PO SCH (06:49)
[2025-04-06] MEDS: METOCLOPRAMIDE 5 MG/ML 2 ML VIAL IVP STA (06:51)
[2025-04-06] MEDS: CHOLECALCIFEROL 25 MCG (1000 IU) TABLET PO SCH (07:34)
[2025-04-06 08:17] LABS: Basophils # (A) 0.01 10*3/uL (0.00-0.10); Basophils % (A) 0.1 %; Eosinophils # (A) 0.03 10*3/uL (0.04-0.35); Eosinophils % (A) 0.4 %; HCT 31.7 % (37.2-46.3); HGB 10.4 g/dL (12.0-15.0); Lymphocytes # (A) 1.78 10*3/uL (0.90-5.00); Lymphocytes % (A) 23.1 %; MCH 32.8 pg (27.0-32.0); MCHC 32.8 g/dL (32.0-37.0); Mean Platelet Volume 9.5 fL (9.5-12.2); Monocytes # (A) 0.59 10*3/uL (0.20-1.00); Monocytes % (A) 7.7 %; Neutrophils # (A) 5.27 10*3/uL (1.80-7.70); Neutrophils % (A) 68.6 %; Platelet Count 220 10*3/uL (140-440); RBC 3.17 10*6/uL (4.10-5.20); RDW 13.8 % (11.5-14.5); WBC 7.69 10*3/uL (4.50-10.00)
--- NOTE | 2025-04-06 08:20 | XR ---
EXAMINATION TYPE: XR chest 1V DATE OF EXAM: 04/06/2025 7:13 AM COMPARISON: Chest radiographs from 04/05/2025. CLINICAL INDICATION: Female, 59 years old with history of post lobectomy; [facility] TECHNIQUE: XR chest 1V Frontal view of the chest. FINDINGS: Lungs/Pleura: Trace left pneumothorax There is no evidence of pleural effusion, focal consolidation, or right pneumothorax. Pulmonary vascularity: Unremarkable. Heart/mediastinum: Cardiomediastinal silhouette is unremarkable. Musculoskeletal: No acute osseous pathology. Other findings: left thoracotomy tube with trace pneumothorax. IMPRESSION: Trace left pneumothorax. [facility], , 04/06/2025 8:17 AM
[2025-04-06 08:27] LABS: African American GFR (CKD) >90 (>60 ml/min/1.73 sqM); Anion Gap 7 mmol/L; Blood Urea Nitrogen 8 mg/dL (7-17); Carbon Dioxide 26 mmol/L (22-30); Chloride 104 mmol/L (98-107); Glucose 188 mg/dL (74-99); Non-African American GFR(CKD) >90 (>60 ml/min/1.73 sqM); Potassium 3.9 mmol/L (3.5-5.1); Sodium 137 mmol/L (137-145)
[2025-04-06] MEDS ORDERED: NON FORMULARY DRUG (Vitamin B Complex [Vitamin B Complex] 1 EACH Capsule) PO SCH (09:00)
[2025-04-06] MEDS ORDERED: NON FORMULARY DRUG (Omega-3/Dha/Epa/Fish Oil [Fish Oil 1,000 Mg Softgel] 1 EACH Capsule) PO SCH (09:00)
--- NOTE | 2025-04-06 09:40 | P.PN ---
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 History of previous tobacco dependence, COPD, hyperlipidemia, hypothyroid POD #1 robotic assisted thoracoscopic left upper lobectomy with mediastinal lymph node dissection The patient was seen and examined this morning sitting up in a recliner on the cardiac stepdown unit in no acute distress. Remains in sinus rhythm, hemodynam ically stable. Currently on 3 LPM NC with oxygen saturation in the high 90s, able to achieve 1000 mL on incentive spirometer. States pain is mostly controlled on current medication regimen, denies significant shortness of breath. Left pleural chest tube remains present to water seal, tiny air leak present with forceful coughing. Labs, CXR reviewed. Objective - Vital Signs Vital signs: Vital Signs Temp 98.7 F 04/06/25 07:26 Pulse 84 04/06/25 07:26 Resp 20 04/06/25 07:26 BP 135/70 04/06/25 07:26 Pulse Ox 98 04/06/25 07:26 FiO2 Intake & Output 04/05/25 04/06/25 04/06/25 18:59 06:59 18:59 Intake Total 2240 Output Total 630 1050 250 Balance 1610 -1050 -250 Weight 52.5 kg 52.5 kg Intake: IV 2000 Oral 240 Output: Chest Tube Drainage 350 150 0 Chest Tube Left 350 150 0 Urine 260 900 250 Estimated Blood Loss 20 Other: Voiding Method Bedside Commode - Exam CONSTITUTIONAL: Appears comfortable, cooperative, no acute distress RESPIRATORY: Lungs sounds diminished bilaterally. Respirations even, nonlabored. Currently on 3 LPM NC with oxygen saturation 97%. Able to achieve 1000 mL on incentive spirometry. Weak cough. CARDIOVASCULAR: S1, S2 present. Regular rate and rhythm, sinus rhythm on telemetry. Palpable peripheral pulses bilaterally. No edema present. No calf pain or tenderness noted. SCDs present. GASTROINTESTINAL: Abdomen soft, nontender, nondistended. Active bowel sounds present 4 quadrants. Tolerating minimal diet. GENITOURINARY: Continues to void clear, yellow urine INTEGUMENTARY: Skin is warm and dry with evidence of good perfusion. Thoracic incision well approximated and covered with dry intact dressing. NEUROLOGIC: Cranial nerves II through XII intact MUSKULOSKELETAL: Able to move all extremities, strength equal bilaterally, gait normal PSYCHIATRIC: Alert and oriented to person place and time, appropriate affect, intact judgment and insight INVASIVE LINES AND TUBES: Left pleural chest tube present to water seal, tiny air leak present with forceful coughing, 90 ml serosanguinous drainage overnight, 500 mL since surgery - Allied health notes Allied health notes reviewed: nursing - Labs CBC & Chem 7: 04/06/25 08:04 04/06/25 08:04 Labs: Abnormal Lab Results - Last 24 Hours (Table) 04/06/25 04/06/25 Range/Units 08:04 08:04 RBC 3.17 L (4.10-5.20) 10*6/uL Hgb 10.4 L (12.0-15.0) g/dL Hct 31.7 L (37.2-46.3) % MCV 100.0 H (80.0-97.0) fL MCH 32.8 H (27.0-32.0) pg Eosinophils # 0.03 L (0.04-0.35) 10*3/uL Glucose 188 H (74-99) mg/dL - Imaging and Cardiology Chest x-ray: report reviewed, image reviewed Assessment and Plan Assessment: 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 status post induction chemotherapy, S/P robotic assisted thoracoscopic left upper lobectomy with mediastinal lymph node dissection History of previous tobacco dependence COPD Hyperlipidemia Hypothyroid Plan: Continue left pleural chest tube to waterseal for another 24 hours, monitor for complete airleak resolution Wean oxygen as tolerated, encourage incentive spirometry use 10 times every hour while awake, bronchodilators per pulmonology Increase activity as tolerated Pain control per current medication regimen Hemoglobin A1c added, will monitor blood sugars AC and at bedtime, no insulin at this point Will monitor daily labs and x-rays More recommendations to follow
[2025-04-06 11:21] LABS: Glucose,Whole Blood 154 mg/dL (70-110)
[2025-04-06] MEDS: TIOTROPIUM 2.5 MCG INHALER INHALATION SCH (12:29)
[2025-04-06] MEDS: SYMBICORT 160-4.5 MCG INHALER INHALATION SCH (12:29)
--- NOTE | 2025-04-06 15:38 | P.PN ---
Subjective Progress Note Date: 04/06/25 Principal diagnosis: POD #1 robotic assisted thoracoscopic left upper lobectomy with mediastinal lymph node dissection This is a 59-year-old female who normally sees Dr. Stern, patient was discovered to have left upper lobe large tumor in the posterior apical region, she had positive bronchoscopy for non-small cell lung cancer, her PET scan was positive and showed enlarged AP window and hilar lymph nodes. Patient had recent bronchoscopy and EBUS she was staged as clinical stage IIIa and treated with induction chemotherapy with excellent response. Hence oncology recommended left upper lobectomy which was done today, postoperatively patient was admitted to the medical floor, and I was asked to see her in consultation. Patient is doing well, relatively asymptomatic except for some pain and discomfort and a bit of nausea no shortness of breath no fever no chills no hemoptysis. Chest x- ray showed no evidence of pneumothorax, chest tube is already on waterseal, off suction. Seen today on 04/06/2025, patient is doing well today, feeling good, not in any distress, on 5 L nasal cannula with O2 sat in the 90s patient is achieving 1000 mL on her incentive spirometry. Her left pleural chest tube remains in place, remains to waterseal, tiny airleak is noted especially with coughing. Chest x- ray is reassuring. CBC is relatively normal electrolytes are normal hemoglobin is 10.4 Objective - Vital Signs Vital signs: Vital Signs Temp 98.2 F 04/06/25 11:03 Pulse 88 04/06/25 13:07 Resp 18 04/06/25 11:03 BP 148/74 04/06/25 11:03 Pulse Ox 94 L 04/06/25 11:03 FiO2 Intake & Output 04/05/25 04/06/25 04/06/25 18:59 06:59 18:59 Intake Total 2240 0 Output Total 630 1050 1550 Balance 1610 -1050 -1550 Weight 52.5 kg 52.5 kg Intake: IV 2000 Oral 240 0 Output: Chest Tube Drainage 350 150 200 Chest Tube Left 350 150 200 Urine 730 847 1405 Estimated Blood Loss 20 Other: Voiding Method Bedside Commode Toilet Bedside Commode - Exam GENERAL EXAM: Revealed 59-year-old female frail looking in no distress HEAD: Normocephalic. EYES: Normal reaction of pupils, equal size. NOSE: Clear with pink turbinates. THROAT: No erythema or exudates. NECK: No masses, no JVD. CHEST: No chest wall deformity. LUNGS: Good breath sound bilaterally left-sided chest tube connected to Pleur- evac as noted CVS: S1 and S2 normal with no audible murmur, regular rhythm. ABDOMEN: No hepatosplenomegaly, normal bowel sounds, no guarding or rigidity. SKIN: No rashes CENTRAL NERVOUS SYSTEM: No focal deficits, tone is normal in all 4 extremities. EXTREMITIES: There is no peripheral edema. No clubbing, no cyanosis. Peripheral pulses are intact. - Labs CBC & Chem 7: 04/06/25 08:04 04/06/25 08:04 Labs: Abnormal Lab Results - Last 24 Hours (Table) 04/06/25 04/06/25 04/06/25 Range/Units 08:04 08:04 11:18 RBC 3.17 L (4.10-5.20) 10*6/uL Hgb 10.4 L (12.0-15.0) g/dL Hct 31.7 L (37.2-46.3) % MCV 100.0 H (80.0-97.0) fL MCH 32.8 H (27.0-32.0) pg Eosinophils # 0.03 L (0.04-0.35) 10*3/uL Glucose 188 H (74-99) mg/dL POC Glucose (mg/dL) 154 H (70-110) mg/dL Assessment and Plan Assessment: Impression: Status post Robotic assisted thoracoscopic left upper lobectomy with mediastinal lymph node dissection, postoperative day #1 for stage IIIa squamous cell lung cancer. History of COPD History of pulmonary nodules being followed in the outpatient setting Hypertension Hyperlipidemia Hypothyroidism Recommendation: Continue incentive spirometry Continue chest tube to waterseal, monitor for airleak Resume home bronchodilators GI and DVT prophylaxis Titrate oxygen accordingly Will continue to follow Time with Patient: Less than 30
[2025-04-06 16:11] LABS: Glucose,Whole Blood 121 mg/dL (70-110)
[2025-04-06 20:41] LABS: Glucose,Whole Blood 142 mg/dL (70-110)
[2025-04-07 05:36] LABS: Glucose,Whole Blood 102 mg/dL (70-110)
--- NOTE | 2025-04-07 07:31 | XR ---
EXAMINATION TYPE: XR chest 2V DATE OF EXAM: 04/07/2025 7:11 AM COMPARISON: Chest radiographs from 04/06/2025. CLINICAL INDICATION: Female, 59 years old with history of post lobectomy; [facility] TECHNIQUE: XR chest 2V Frontal and lateral views of the chest. FINDINGS: Lungs/Pleura: Elevated left diaphragm. Trace left pneumothorax There is no evidence of pleural effusi on, focal consolidation, or right pneumothorax. Pulmonary vascularity: Unremarkable. Heart/mediastinum: Cardiomediastinal silhouette is unremarkable. Musculoskeletal: No acute osseous pathology. Other findings: left thoracotomy tube with trace pneumothorax. IMPRESSION: Trace left pneumothorax. [facility], , 04/07/2025 7:29 AM
--- NOTE | 2025-04-07 07:53 | P.PN ---
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 History of previous tobacco dependence, COPD, hyperlipidemia, hypothyroid POD #2 robotic assisted thoracoscopic left upper lobectomy with mediastinal lymph node dissection The patient was seen and examined this morning sitting up in a recliner on the cardiac stepdown unit in no acute distress having just returned from x-ray. Re mounika in sinus rhythm, hemodynamically stable. Currently on 2 LPM NC with oxygen saturation in the high 90s, able to achieve 1677-2591 mL on incentive spirometer. States pain is mostly controlled on current medication regimen, denies significant shortness of breath. Left pleural chest tube remains present to water seal, tiny air leak present with forceful coughing. Labs, CXR reviewed. Objective - Vital Signs Vital signs: Vital Signs Temp 98.3 F 04/07/25 03:12 Pulse 90 04/07/25 03:12 Resp 18 04/07/25 03:12 BP 150/84 04/07/25 03:12 Pulse Ox 97 04/07/25 03:12 FiO2 Intake & Output 04/06/25 04/07/25 04/07/25 18:59 06:59 18:59 Intake Total 120 Output Total 2049 960 Balance -1930 -960 Weight 52.6 kg Intake: Oral 120 Output: Chest Tube Drainage 300 60 Chest Tube Left 300 60 Urine 1750 900 Other: Voiding Method Toilet Toilet Bedside Commode Bedside Commode - Exam CONSTITUTIONAL: Appears comfortable, cooperative, no acute distress RESPIRATORY: Lungs sounds diminished bilaterally. Respirations even, nonlabored. Currently on 2 LPM NC with oxygen saturation 97%. Able to achieve 5235-1550 mL on incentive spirometry. Strong cough. CARDIOVASCULAR: S1, S2 present. Regular rate and rhythm, sinus rhythm on telemetry. Palpable peripheral pulses bilaterally. No edema present. No calf pain or tenderness noted. SCDs present. GASTROINTESTINAL: Abdomen soft, nontender, nondistended. Active bowel sounds present 4 quadrants. Tolerating minimal diet. Positive flatus GENITOURINARY: Continues to void clear, yellow urine, output 2650 mL in the last 24 hours INTEGUMENTARY: Skin is warm and dry with evidence of good perfusion. Thoracic incision well approximated and covered with dry intact dressing. NEUROLOGIC: Cranial nerves II through XII intact MUSKULOSKELETAL: Able to move all extremities, strength equal bilaterally, gait normal PSYCHIATRIC: Alert and oriented to person place and time, appropriate affect, intact judgment and insight INVASIVE LINES AND TUBES: Left pleural chest tube present to water seal, tiny air leak present with forceful coughing, 60 ml serosanguinous drainage overnight, 200 mL in the last 24 hours - Allied health notes Allied health notes reviewed: nursing - Labs CBC & Chem 7: 04/06/25 08:04 04/06/25 08:04 Labs: Abnormal Lab Results - Last 24 Hours (Table) 04/06/25 04/06/25 04/06/25 Range/Units 08:04 08:04 11:18 RBC 3.17 L (4.10-5.20) 10*6/uL Hgb 10.4 L (12.0-15.0) g/dL Hct 31.7 L (37.2-46.3) % MCV 100.0 H (80.0-97.0) fL MCH 32.8 H (27.0-32.0) pg Eosinophils # 0.03 L (0.04-0.35) 10*3/uL Glucose 188 H (74-99) mg/dL POC Glucose (mg/dL) 154 H (70-110) mg/dL 04/06/25 04/06/25 Range/Units 16:07 20:34 RBC (4.10-5.20) 10*6/uL Hgb (12.0-15.0) g/dL Hct (37.2-46.3) % MCV (80.0-97.0) fL MCH (27.0-32.0) pg Eosinophils # (0.04-0.35) 10*3/uL Glucose (74-99) mg/dL POC Glucose (mg/dL) 121 H 142 H (70-110) mg/dL - Imaging and Cardiology Chest x-ray: report reviewed, image reviewed Assessment and Plan Assessment: 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 status post induction chemotherapy, S/P robotic assisted thoracoscopic left upper lobectomy with mediastinal lymph node dissection History of previous tobacco dependence COPD Hyperlipidemia Hypothyroid Plan: Continue left pleural chest tube to waterseal for another 24 hours, monitor for complete airleak resolution Wean oxygen as tolerated, encourage incentive spirometry use 10 times every hour while awake, bronchodilators per pulmonology Increase activity as tolerated Pain control per current medication regimen Hemoglobin A1c 5.4%, patient is not diabetic, will stop Accu-Cheks Will monitor daily labs and x-rays More recommendations to follow
[2025-04-07] MEDS: SENNOSIDES-DOCUSATE SODIUM 1 EACH TAB PO SCH (08:55)
[2025-04-07 09:24] LABS: HGB 10.8 g/dL (12.0-15.0); MCH 32.6 pg (27.0-32.0); MCHC 32.7 g/dL (32.0-37.0); MCV 99.7 fL (80.0-97.0); Mean Platelet Volume 10.1 fL (9.5-12.2); Platelet Count 244 10*3/uL (140-440); RBC 3.31 10*6/uL (4.10-5.20); RDW 13.7 % (11.5-14.5); WBC 6.38 10*3/uL (4.50-10.00)
[2025-04-07 09:49] LABS: African American GFR (CKD) >90 (>60 ml/min/1.73 sqM); Anion Gap 8 mmol/L; Blood Urea Nitrogen 9 mg/dL (7-17); Calcium 9.2 mg/dL (8.4-10.2); Carbon Dioxide 26 mmol/L (22-30); Chloride 103 mmol/L (98-107); Glucose 144 mg/dL (74-99); Non-African American GFR(CKD) >90 (>60 ml/min/1.73 sqM); Potassium 3.6 mmol/L (3.5-5.1); Sodium 137 mmol/L (137-145)
[2025-04-07 11:29] LABS: Glucose,Whole Blood 188 mg/dL (70-110)
--- NOTE | 2025-04-07 14:24 | P.PN ---
Subjective Progress Note Date: 04/07/25 Principal diagnosis: POD #1 robotic assisted thoracoscopic left upper lobectomy with mediastinal lymph node dissection This is a 59-year-old female who normally sees Dr. Stern, patient was discovered to have left upper lobe large tumor in the posterior apical region, she had positive bronchoscopy for non-small cell lung cancer, her PET scan was positive and showed enlarged AP window and hilar lymph nodes. Patient had recent bronchoscopy and EBUS she was staged as clinical stage IIIa and treated with induction chemotherapy with excellent response. Hence oncology recommended left upper lobectomy which was done today, postoperatively patient was admitted to the medical floor, and I was asked to see her in consultation. Patient is doing well, relatively asymptomatic except for some pain and discomfort and a bit of nausea no shortness of breath no fever no chills no hemoptysis. Chest x- ray showed no evidence of pneumothorax, chest tube is already on waterseal, off suction. Seen today on 04/06/2025, patient is doing well today, feeling good, not in any distress, on 5 L nasal cannula with O2 sat in the 90s patient is achieving 1000 mL on her incentive spirometry. Her left pleural chest tube remains in place, remains to waterseal, tiny airleak is noted especially with coughing. Chest x- ray is reassuring. CBC is relatively normal electrolytes are normal hemoglobin is 10.4 Seen today on 04/07/2025, patient is doing well, continues have chest tube in maude ce, she has minimal air leak. Chest x-ray showed no evidence of pneumothorax. Clinically the patient is doing well and she continues to do well with incentive spirometry and ambulation. Objective - Vital Signs Vital signs: Vital Signs Temp 97.9 F 04/07/25 08:00 Pulse 74 04/07/25 12:12 Resp 16 04/07/25 12:00 BP 137/81 04/07/25 12:00 Pulse Ox 100 04/07/25 12:00 FiO2 21 04/07/25 08:19 Intake & Output 04/06/25 04/07/25 04/07/25 18:59 06:59 18:59 Intake Total 120 222 Output Total 2049 960 300 Balance -1930 -960 -78 Weight 52.6 kg Intake: Oral 120 222 Output: Chest Tube Drainage 300 60 Chest Tube Left 300 60 Urine 1750 900 300 Other: Voiding Method Toilet Toilet Toilet Bedside Commode Bedside Commode Bedside Commode - Exam GENERAL EXAM: Revealed 59-year-old female frail looking in no distress HEAD: Normocephalic. EYES: Normal reaction of pupils, equal size. NOSE: Clear with pink turbinates. THROAT: No erythema or exudates. NECK: No masses, no JVD. CHEST: No chest wall deformity. LUNGS: Good breath sound bilaterally left-sided chest tube connected to Pleur- evac as noted CVS: S1 and S2 normal with no audible murmur, regular rhythm. ABDOMEN: No hepatosplenomegaly, normal bowel sounds, no guarding or rigidity. SKIN: No rashes CENTRAL NERVOUS SYSTEM: No focal deficits, tone is normal in all 4 extremities. EXTREMITIES: There is no peripheral edema. No clubbing, no cyanosis. Peripheral pulses are intact. - Labs CBC & Chem 7: 04/07/25 08:24 04/07/25 08:24 Labs: Abnormal Lab Results - Last 24 Hours (Table) 04/06/25 04/06/25 04/07/25 Range/Units 16:07 20:34 08:24 RBC 3.31 L (4.10-5.20) 10*6/uL Hgb 10.8 L (12.0-15.0) g/dL Hct 33.0 L (37.2-46.3) % MCV 99.7 H (80.0-97.0) fL MCH 32.6 H (27.0-32.0) pg Creatinine (0.52-1.04) mg/dL Glucose (74-99) mg/dL POC Glucose (mg/dL) 121 H 142 H (70-110) mg/dL 04/07/25 04/07/25 Range/Units 08:24 11:27 RBC (4.10-5.20) 10*6/uL Hgb (12.0-15.0) g/dL Hct (37.2-46.3) % MCV (80.0-97.0) fL MCH (27.0-32.0) pg Creatinine 0.51 L (0.52-1.04) mg/dL Glucose 144 H (74-99) mg/dL POC Glucose (mg/dL) 188 H (70-110) mg/dL Assessment and Plan Assessment: Impression: Status post Robotic assisted thoracoscopic left upper lobectomy with mediastinal lymph node dissection, postoperative day #2 for stage IIIa squamous cell lung cancer. History of COPD History of pulmonary nodules being followed in the outpatient setting Hypertension Hyperlipidemia Hypothyroidism Recommendation: Continue incentive spirometry Continue chest tube to waterseal, monitor for airleak Resume home bronchodilators GI and DVT prophylaxis Titrate oxygen accordingly Will continue to follow Time with Patient: Less than 30
[2025-04-07 16:09] LABS: Glucose,Whole Blood 121 mg/dL (70-110)
[2025-04-07 19:52] LABS: Glucose,Whole Blood 128 mg/dL (70-110)
[2025-04-08 05:44] LABS: Glucose,Whole Blood 106 mg/dL (70-110)
--- NOTE | 2025-04-08 07:32 | XR ---
EXAMINATION TYPE: XR chest 2V DATE OF EXAM: 04/08/2025 6:44 AM COMPARISON: Chest radiograph from one day prior. CLINICAL INDICATION: Female, 59 years old with history of Post lobectomy; [facility] TECHNIQUE: XR chest 2V Frontal and lateral views of the chest. FINDINGS: : Lungs/Pleura: Elevated left diaphragm. Trace left pneumothorax There is no evidence of pleural effusi on, focal consolidation, or right pneumothorax. Pulmonary vascularity: Unremarkable. Heart/mediastinum: Cardiomediastinal silhouette is unremarkable. Musculoskeletal: No acute osseous pathology. Other findings: left thoracotomy tube with trace pneumothorax. IMPRESSION: Trace left pneumothorax. [facility], , 04/08/2025 7:30 AM
[2025-04-08 07:35] LABS: HCT 33.3 % (37.2-46.3); HGB 11.2 g/dL (12.0-15.0); MCH 32.6 pg (27.0-32.0); MCHC 33.6 g/dL (32.0-37.0); MCV 96.8 fL (80.0-97.0); Mean Platelet Volume 10.1 fL (9.5-12.2); Platelet Count 266 10*3/uL (140-440); RBC 3.44 10*6/uL (4.10-5.20); RDW 13.5 % (11.5-14.5); WBC 6.15 10*3/uL (4.50-10.00)
[2025-04-08 07:57] LABS: African American GFR (CKD) >90 (>60 ml/min/1.73 sqM); Anion Gap 8 mmol/L; Blood Urea Nitrogen 8 mg/dL (7-17); Calcium 9.5 mg/dL (8.4-10.2); Carbon Dioxide 24 mmol/L (22-30); Chloride 104 mmol/L (98-107); Glucose 103 mg/dL (74-99); Non-African American GFR(CKD) >90 (>60 ml/min/1.73 sqM); Potassium 3.8 mmol/L (3.5-5.1); Sodium 136 mmol/L (137-145)
--- NOTE | 2025-04-08 08:21 | P.PN ---
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 History of previous tobacco dependence, COPD, hyperlipidemia, hypothyroid POD #3 robotic assisted thoracoscopic left upper lobectomy with mediastinal lymph node dissection The patient was seen and examined this morning sitting up in a recliner on the cardiac stepdown unit in no acute distress. States she got some sleep last nig ht. Remains in sinus rhythm, hemodynamically stable. Currently on room air with oxygen saturation in the low to mid 90s, able to achieve 1000 mL on incentive spirometer. States pain is mostly controlled on current medication regimen, denies significant shortness of breath. Left pleural chest tube remains present to water seal, no air leak seen this morning. Labs, CXR reviewed. Patient has been ambulatory in the hallway without difficulty. Objective - Vital Signs Vital signs: Vital Signs Temp 98.4 F 04/08/25 03:13 Pulse 81 04/08/25 03:13 Resp 16 04/08/25 03:13 BP 116/77 04/08/25 03:13 Pulse Ox 90 L 04/08/25 03:13 FiO2 21 04/07/25 08:19 Intake & Output 04/07/25 04/08/25 04/08/25 18:59 06:59 18:59 Intake Total 880 120 118 Output Total 1740 840 Balance -860 -720 118 Weight 52.8 kg Intake: Oral 880 120 118 Output: Chest Tube Drainage 40 40 Chest Tube Left 40 40 Urine 1700 800 Other: Voiding Method Toilet Toilet Bedside Commode Bedside Commode # Voids 0 - Exam CONSTITUTIONAL: Appears comfortable, cooperative, no acute distress RESPIRATORY: Lungs sounds diminished bilaterally. Respirations even, nonlabored. Currently on room air with oxygen saturation 90-94%. Able to achieve 1000 mL on incentive spirometry. Strong cough. CARDIOVASCULAR: S1, S2 present. Regular rate and rhythm, sinus rhythm on telemetry. Palpable peripheral pulses bilaterally. No edema present. No calf pain or tenderness noted. SCDs present. GASTROINTESTINAL: Abdomen soft, nontender, nondistended. Active bowel sounds present 4 quadrants. Tolerating minimal diet. Positive flatus GENITOURINARY: Continues to void clear, yellow urine, output 2500 mL in the last 24 hours INTEGUMENTARY: Skin is warm and dry with evidence of good perfusion. Thoracic incision well approximated and covered with dry intact dressing. NEUROLOGIC: Cranial nerves II through XII intact MUSKULOSKELETAL: Able to move all extremities, strength equal bilaterally, gait normal PSYCHIATRIC: Alert and oriented to person place and time, appropriate affect, intact judgment and insight INVASIVE LINES AND TUBES: Left pleural chest tube present to water seal, no air leak present this morning, 40 ml serosanguinous drainage overnight, 100 mL in the last 24 hours - Allied health notes Allied health notes reviewed: nursing - Labs CBC & Chem 7: 04/08/25 07:08 04/08/25 07:08 Labs: Abnormal Lab Results - Last 24 Hours (Table) 04/07/25 04/07/25 04/07/25 Range/Units 08:24 08:24 11:27 RBC 3.31 L (4.10-5.20) 10*6/uL Hgb 10.8 L (12.0-15.0) g/dL Hct 33.0 L (37.2-46.3) % MCV 99.7 H (80.0-97.0) fL MCH 32.6 H (27.0-32.0) pg Sodium (137-145) mmol/L Creatinine 0.51 L (0.52-1.04) mg/dL Glucose 144 H (74-99) mg/dL POC Glucose (mg/dL) 188 H (70-110) mg/dL 04/07/25 04/07/25 04/08/25 Range/Units 16:07 19:50 07:08 RBC 3.44 L (4.10-5.20) 10*6/uL Hgb 11.2 L (12.0-15.0) g/dL Hct 33.3 L (37.2-46.3) % MCV (80.0-97.0) fL MCH 32.6 H (27.0-32.0) pg Sodium (137-145) mmol/L Creatinine (0.52-1.04) mg/dL Glucose (74-99) mg/dL POC Glucose (mg/dL) 121 H 128 H (70-110) mg/dL 04/08/25 Range/Units 07:08 RBC (4.10-5.20) 10*6/uL Hgb (12.0-15.0) g/dL Hct (37.2-46.3) % MCV (80.0-97.0) fL MCH (27.0-32.0) pg Sodium 136 L (137-145) mmol/L Creatinine 0.46 L (0.52-1.04) mg/dL Glucose 103 H (74-99) mg/dL POC Glucose (mg/dL) (70-110) mg/dL - Imaging and Cardiology Chest x-ray: report reviewed, image reviewed Assessment and Plan Assessment: 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 status post induction chemotherapy, S/P robotic assisted thoracoscopic left upper lobectomy with mediastinal lymph node dissection History of previous tobacco dependence COPD Hyperlipidemia Hypothyroid Plan: Chest tube clamped, will unclamp in 2 hours to determine if airleak present, if no airleak present will consider discontinuing chest tube, if airleak present will leave chest tube to waterseal Encourage incentive spirometry use 10 times every hour while awake, bronchodilators per pulmonology Increase activity as tolerated Pain control per current medication regimen Hemoglobin A1c 5.4%, patient is not diabetic, Stop Accu-Cheks Will monitor daily labs and x-rays More recommendations to follow
--- NOTE | 2025-04-08 15:05 | P.PN ---
Subjective Progress Note Date: 04/08/25 This is a 59-year-old female who normally sees Dr. Stern, patient was discovered to have left upper lobe large tumor in the posterior apical region, she had positive bronchoscopy for non-small cell lung cancer, her PET scan was positive and showed enlarged AP window and hilar lymph nodes. Patient had recent bronchoscopy and EBUS she was staged as clinical stage IIIa and treated with induction chemotherapy with excellent response. Hence oncology recommended left upper lobectomy which was done today, postoperatively patient was admitted to the medical floor, and I was asked to see her in consultation. Patient is doing well, relatively asymptomatic except for some pain and discomfort and a bit of nausea no shortness of breath no fever no chills no hemoptysis. Chest x- ray showed no evidence of pneumothorax, chest tube is already on waterseal, off suction. Seen today on 04/06/2025, patient is doing well today, feeling good, not in any distress, on 5 L nasal cannula with O2 sat in the 90s patient is achieving 1000 mL on her incentive spirometry. Her left pleural chest tube remains in place, remains to waterseal, tiny airleak is noted especially with coughing. Chest x- ray is reassuring. CBC is relatively normal electrolytes are normal hemoglobin is 10.4 Seen today on 04/07/2025, patient is doing well, continues have chest tube in place, she has minimal air leak. Chest x-ray showed no evidence of pneumothorax. Clinically the patient is doing well and she continues to do well with incentive spirometry and ambulation. The patient is seen today April 08, 2025 in follow-up on the selective care unit. She is currently sitting up in a chair at the bedside. Awake and alert in no acute distress. Maintaining good O2 saturations in the 90s on room air oxygen. She has been afebrile. Hemodynamically stable. White count 6.1. Hemoglobin 11.2. Platelets 266. Sodium 136. Potassium 3.8. Bicarb 24. BUN 8. Creatinine 0.46. Glucose 103. She remains on DuoNeb inhalations, Symbicort, Spiriva. Heparin for DVT prophylaxis. Left-sided chest tube remains in place. Chest x-ray reveals a trace left pneumothorax. Chest tube currently clamped per CT service. Objective - Vital Signs Vital signs: Vital Signs Temp 98.4 F 04/08/25 03:13 Pulse 82 04/08/25 12:58 Resp 16 04/08/25 12:00 BP 133/80 04/08/25 12:00 Pulse Ox 93 L 04/08/25 12:00 FiO2 21 04/07/25 08:19 Intake & Output 04/07/25 04/08/25 04/08/25 18:59 06:59 18:59 Intake Total 880 120 658 Output Total 1740 840 450 Balance -860 -720 208 Weight 52.8 kg Intake: Oral 880 120 658 Output: Chest Tube Drainage 40 40 Chest Tube Left 40 40 Urine 1700 800 450 Other: Voiding Method Toilet Toilet Toilet Bedside Commode Bedside Commode Bedside Commode # Voids 0 - Exam GENERAL EXAM: Alert, active, pleasant 59-year-old female, on room air oxygen, fairly comfortable in no apparent distress. HEAD: Normocephalic. EYES: Normal reaction of pupils, equal size. NOSE: Clear with pink turbinates. THROAT: No erythema or exudates. NECK: No masses, no JVD. CHEST: No chest wall deformity. Left-sided chest tube remains in place to Pleur-evac. Currently clamped. LUNGS: Equal air entry with no crackles, wheeze, rhonchi or dullness. CVS: S1 and S2 normal with no audible murmur, regular rhythm. ABDOMEN: No hepatosplenomegaly, normal bowel sounds, no guarding or rigidity. SPINE: No scoliosis or deformity SKIN: No rashes CENTRAL NERVOUS SYSTEM: No focal deficits, tone is normal in all 4 extremities. EXTREMITIES: There is no peripheral edema. No clubbing, no cyanosis. Peripheral pulses are intact. - Labs CBC & Chem 7: 04/08/25 07:08 04/08/25 07:08 Labs: Abnormal Lab Results - Last 24 Hours (Table) 04/07/25 04/07/25 04/08/25 Range/Units 16:07 19:50 07:08 RBC 3.44 L (4.10-5.20) 10*6/uL Hgb 11.2 L (12.0-15.0) g/dL Hct 33.3 L (37.2-46.3) % MCH 32.6 H (27.0-32.0) pg Sodium (137-145) mmol/L Creatinine (0.52-1.04) mg/dL Glucose (74-99) mg/dL POC Glucose (mg/dL) 121 H 128 H (70-110) mg/dL 04/08/25 Range/Units 07:08 RBC (4.10-5.20) 10*6/uL Hgb (12.0-15.0) g/dL Hct (37.2-46.3) % MCH (27.0-32.0) pg Sodium 136 L (137-145) mmol/L Creatinine 0.46 L (0.52-1.04) mg/dL Glucose 103 H (74-99) mg/dL POC Glucose (mg/dL) (70-110) mg/dL Assessment and Plan Assessment: Status post Robotic assisted thoracoscopic left upper lobectomy with mediastinal lymph node dissection, postoperative day #3 for stage IIIa squamous cell lung cancer History of COPD History of pulmonary nodules being followed in the outpatient setting Hypertension Hyperlipidemia Hypothyroidism Plan: The patient was seen and evaluated Chest x-ray, labs and medications reviewed Chest tube currently clamped per CT service Continue to work with the incentive spirometer Continue DuoNeb inhalations Continue Symbicort, Spiriva Currently stable on room air oxygen Increase her activity as tolerated Follow-up chest x-ray in a.m. We will continue to follow I have personally seen and examined the patient, performed the documentation and the assessment and plan as written. Number of minutes spent on the visit: 10 Dictation was produced using [employer] dictation software. Please excuse any grammatical, word or spelling errors.
[2025-04-09 05:06] LABS: HCT 33.8 % (37.2-46.3); HGB 11.4 g/dL (12.0-15.0); MCHC 33.7 g/dL (32.0-37.0); Platelet Count 249 10*3/uL (140-440); RBC 3.45 10*6/uL (4.10-5.20); RDW 13.6 % (11.5-14.5); WBC 5.64 10*3/uL (4.50-10.00)
[2025-04-09 05:51] LABS: African American GFR (CKD) >90 (>60 ml/min/1.73 sqM); Anion Gap 5 mmol/L; Blood Urea Nitrogen 8 mg/dL (7-17); Calcium 9.4 mg/dL (8.4-10.2); Carbon Dioxide 30 mmol/L (22-30); Chloride 106 mmol/L (98-107); Glucose 100 mg/dL (74-99); Non-African American GFR(CKD) >90 (>60 ml/min/1.73 sqM); Potassium 4.1 mmol/L (3.5-5.1); Sodium 141 mmol/L (137-145)
--- NOTE | 2025-04-09 07:27 | P.PN ---
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 History of previous tobacco dependence, COPD, hyperlipidemia, hypothyroid POD #4 robotic assisted thoracoscopic left upper lobectomy with mediastinal lymph node dissection The patient was seen and examined this morning sitting up in a recliner on the cardiac stepdown unit in no acute distress. Remains in sinus rhythm, hemodynam ically stable. Currently on room air with oxygen saturation in the low to mid 90s, able to achieve 1000 mL on incentive spirometer. States pain is mostly controlled on current medication regimen, denies significant shortness of breath. Left pleural chest tube remains present to water seal, no air leak seen this morning. Chest tube was clamped yesterday morning, when unclamped patient did have small airleak with forceful cough. Will clamp again this morning as no airleak was seen. Labs, CXR reviewed. Patient has been ambulatory in the hallway without difficulty. Objective - Vital Signs Vital signs: Vital Signs Temp 98.0 F 04/09/25 03:26 Pulse 84 04/09/25 03:26 Resp 16 04/09/25 03:26 BP 122/80 04/09/25 03:26 Pulse Ox 91 L 04/09/25 03:26 FiO2 21 04/07/25 08:19 Intake & Output 04/08/25 04/09/25 04/09/25 18:59 06:59 18:59 Intake Total 1102 240 Output Total 850 1030 Balance 252 -790 Weight 52.8 kg Intake: Oral 1102 240 Output: Chest Tube Drainage 30 Chest Tube Left 30 Urine 850 1000 Other: Voiding Method Toilet Toilet Bedside Commode Bedside Commode - Exam CONSTITUTIONAL: Appears comfortable, cooperative, no acute distress RESPIRATORY: Lungs sounds diminished bilaterally. Respirations even, nonlabored. Currently on room air with oxygen saturation 90-94%. Able to achieve 1000 mL on incentive spirometry. Strong cough. CARDIOVASCULAR: S1, S2 present. Regular rate and rhythm, sinus rhythm on telemetry. Palpable peripheral pulses bilaterally. No edema present. No calf pain or tenderness noted. SCDs present. GASTROINTESTINAL: Abdomen soft, nontender, nondistended. Active bowel sounds present 4 quadrants. Tolerating minimal diet. Positive flatus GENITOURINARY: Continues to void clear, yellow urine, output 1850 mL in the last 24 hours INTEGUMENTARY: Skin is warm and dry with evidence of good perfusion. Thoracic incision well approximated and covered with dry intact dressing. NEUROLOGIC: Cranial nerves II through XII intact MUSKULOSKELETAL: Able to move all extremities, strength equal bilaterally, gait normal PSYCHIATRIC: Alert and oriented to person place and time, appropriate affect, intact judgment and insight INVASIVE LINES AND TUBES: Left pleural chest tube present to water seal, no air leak present this morning, 10 ml serosanguinous drainage overnight, 30 mL in the last 24 hours - Allied health notes Allied health notes reviewed: nursing - Labs CBC & Chem 7: 04/09/25 04:45 04/09/25 04:45 Labs: Abnormal Lab Results - Last 24 Hours (Table) 04/08/25 04/08/25 04/09/25 Range/Units 07:08 07:08 04:45 RBC 3.44 L 3.45 L (4.10-5.20) 10*6/uL Hgb 11.2 L 11.4 L (12.0-15.0) g/dL Hct 33.3 L 33.8 L (37.2-46.3) % MCV 98.0 H (80.0-97.0) fL MCH 32.6 H 33.0 H (27.0-32.0) pg Sodium 136 L (137-145) mmol/L Creatinine 0.46 L (0.52-1.04) mg/dL Glucose 103 H (74-99) mg/dL 04/09/25 Range/Units 04:45 RBC (4.10-5.20) 10*6/uL Hgb (12.0-15.0) g/dL Hct (37.2-46.3) % MCV (80.0-97.0) fL MCH (27.0-32.0) pg Sodium (137-145) mmol/L Creatinine 0.49 L (0.52-1.04) mg/dL Glucose 100 H (74-99) mg/dL - Imaging and Cardiology Chest x-ray: image reviewed Assessment and Plan Assessment: 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 status post induction chemotherapy, S/P robotic assisted thoracoscopic left upper lobectomy with mediastinal lymph node dissection History of previous tobacco dependence COPD Hyperlipidemia Hypothyroid Plan: Chest tube clamped, will unclamp in 2 hours to determine if airleak present, if no airleak present will consider discontinuing chest tube, if airleak present will leave chest tube to waterseal Encourage incentive spirometry use 10 times every hour while awake, bronchodilators per pulmonology Increase activity as tolerated Pain control per current medication regimen Hemoglobin A1c 5.4%, patient is not diabetic, Stop Accu-Cheks Will monitor daily labs and x-rays More recommendations to follow
[2025-04-09] MEDS: MAGNESIUM HYDROXIDE 2,400 MG/30 ML CUP PO STA (08:08)
--- NOTE | 2025-04-09 08:19 | XR ---
EXAMINATION TYPE: XR chest 2V DATE OF EXAM: 04/09/2025 6:32 AM COMPARISON: Chest radiograph from one day prior. CLINICAL INDICATION: Female, 59 years old with history of Post lobectomy; [facility] TECHNIQUE: XR chest 2V Frontal and lateral views of the chest. FINDINGS: Lungs/Pleura: Elevated left diaphragm. Trace left pneumothorax There is no evidence of pleural effusi on, focal consolidation, or right pneumothorax. Pulmonary vascularity: Unremarkable. Heart/mediastinum: Cardiomediastinal silhouette is unremarkable. Musculoskeletal: No acute osseous pathology. Other findings: left thoracotomy tube with trace pneumothorax. IMPRESSION: Trace left pneumothorax. [facility], , 04/09/2025 8:16 AM
--- NOTE | 2025-04-09 09:53 | XR ---
EXAMINATION TYPE: XR chest 2V DATE OF EXAM: 04/09/2025 9:40 AM COMPARISON: Chest radiographs from CLINICAL INDICATION: Female, 59 years old with history of chest tube clamped;pneumothorax; [facility] TECHNIQUE: XR chest 2V Frontal and lateral views of the chest. FINDINGS: Lungs/Pleura: Elevated left diaphragm. Trace left pneumothorax There is no evidence of pleural effusi on, focal consolidation, or right pneumothorax. Pulmonary vascularity: Unremarkable. Heart/mediastinum: Cardiomediastinal silhouette is unremarkable. Musculoskeletal: No acute osseous pathology. Other findings: left thoracotomy tube without pneumothorax. IMPRESSION: Left thoracotomy tube, no appreciable pneumothorax [facility], , 04/09/2025 9:51 AM
--- NOTE | 2025-04-09 17:01 | P.PN ---
Subjective Progress Note Date: 04/09/25 This is a 59-year-old female who normally sees Dr. Stern, patient was discovered to have left upper lobe large tumor in the posterior apical region, she had positive bronchoscopy for non-small cell lung cancer, her PET scan was positive and showed enlarged AP window and hilar lymph nodes. Patient had recent bronchoscopy and EBUS she was staged as clinical stage IIIa and treated with induction chemotherapy with excellent response. Hence oncology recommended left upper lobectomy which was done today, postoperatively patient was admitted to the medical floor, and I was asked to see her in consultation. Patient is doing well, relatively asymptomatic except for some pain and discomfort and a bit of nausea no shortness of breath no fever no chills no hemoptysis. Chest x- ray showed no evidence of pneumothorax, chest tube is already on waterseal, off suction. Seen today on 04/06/2025, patient is doing well today, feeling good, not in any distress, on 5 L nasal cannula with O2 sat in the 90s patient is achieving 1000 mL on her incentive spirometry. Her left pleural chest tube remains in place, remains to waterseal, tiny airleak is noted especially with coughing. Chest x- ray is reassuring. CBC is relatively normal electrolytes are normal hemoglobin is 10.4 Seen today on 04/07/2025, patient is doing well, continues have chest tube in place, she has minimal air leak. Chest x-ray showed no evidence of pneumothorax. Clinically the patient is doing well and she continues to do well with incentive spirometry and ambulation. The patient is seen today April 08, 2025 in follow-up on the selective care unit. She is currently sitting up in a chair at the bedside. Awake and alert in no acute distress. Maintaining good O2 saturations in the 90s on room air oxygen. She has been afebrile. Hemodynamically stable. White count 6.1. Hemoglobin 11.2. Platelets 266. Sodium 136. Potassium 3.8. Bicarb 24. BUN 8. Creatinine 0.46. Glucose 103. She remains on DuoNeb inhalations, Symbicort, Spiriva. Heparin for DVT prophylaxis. Left-sided chest tube remains in place. Chest x-ray reveals a trace left pneumothorax. Chest tube currently clamped per CT service. The patient is seen today April 09, 2025 in follow-up on the selective care of the unit. She is currently sitting up in a chair at the bedside. Awake and alert in no acute distress. Maintaining good O2 saturations in the 90s on room air oxygen. Her left-sided chest tube was removed this morning per CT service. Chest x-ray shows no appreciable pneumothorax. White count 5.6. Hemoglobin 11.4. Platelets 249. Sodium 141. Potassium 4.1. Bicarb 30. BUN 8. Creatinine 0.49. Glucose 100. She remains on DuoNeb inhalations, Symbicort, Spiriva. Heparin for DVT prophylaxis. Objective - Vital Signs Vital signs: Vital Signs Temp 97.7 F 04/09/25 08:16 Pulse 75 04/09/25 15:33 Resp 16 04/09/25 15:33 BP 117/69 04/09/25 15:33 Pulse Ox 93 L 04/09/25 15:33 FiO2 21 04/09/25 07:48 Intake & Output 04/08/25 04/09/25 04/09/25 18:59 06:59 18:59 Intake Total 1102 240 20 Output Total 850 1030 555 Balance 252 -790 -535 Weight 52.8 kg Intake: IV 20 Invasive Line 3 20 Oral 1102 240 Output: Chest Tube Drainage 30 5 Chest Tube Left 30 5 Urine 850 1000 550 Other: Voiding Method Toilet Toilet Toilet Bedside Commode Bedside Commode Bedside Commode - Exam GENERAL EXAM: Alert, pleasant 59-year-old female, sitting up in a chair, on room air oxygen, comfortable in no apparent distress. HEAD: Normocephalic. EYES: Normal reaction of pupils, equal size. NOSE: Clear with pink turbinates. THROAT: No erythema or exudates. NECK: No masses, no JVD. CHEST: No chest wall deformity. Left-sided chest tube removed today LUNGS: Equal air entry with no crackles, wheeze, rhonchi or dullness. CVS: S1 and S2 normal with no audible murmur, regular rhythm. ABDOMEN: No hepatosplenomegaly, normal bowel sounds, no guarding or rigidity. SPINE: No scoliosis or deformity SKIN: No rashes CENTRAL NERVOUS SYSTEM: No focal deficits, tone is normal in all 4 extremities. EXTREMITIES: There is no peripheral edema. No clubbing, no cyanosis. Peripheral pulses are intact. - Labs CBC & Chem 7: 04/09/25 04:45 04/09/25 04:45 Labs: Abnormal Lab Results - Last 24 Hours (Table) 04/09/25 04/09/25 Range/Units 04:45 04:45 RBC 3.45 L (4.10-5.20) 10*6/uL Hgb 11.4 L (12.0-15.0) g/dL Hct 33.8 L (37.2-46.3) % MCV 98.0 H (80.0-97.0) fL MCH 33.0 H (27.0-32.0) pg Creatinine 0.49 L (0.52-1.04) mg/dL Glucose 100 H (74-99) mg/dL Assessment and Plan Assessment: Status post Robotic assisted thoracoscopic left upper lobectomy with mediastinal lymph node dissection, postoperative day #4 for stage IIIa squamous cell lung cancer History of COPD History of pulmonary nodules being followed in the outpatient setting Hypertension Hyperlipidemia Hypothyroidism Plan: The patient was seen and evaluated Chest x-ray, labs and medications reviewed Chest tube removed today per CT service Continues to work with the incentive spirometer Continue DuoNeb inhalations Continue Symbicort, Spiriva Currently stable on room air oxygen Increase her activity as tolerated Follow-up chest x-ray in a.m. Possible discharge in a.m. I have personally seen and examined the patient, performed the documentation and the assessment and plan as written. Number of minutes spent on the visit: 10 Dictation was produced using [employer] dictation software. Please excuse any grammatical, word or spelling errors.
[2025-04-10] MEDS: SCOPOLAMINE 1 MG/72 HR PATCH TRANSDERM ONE (01:29)
[2025-04-10 05:27] VITALS: RESP 18
[2025-04-10 07:24] LABS: HCT 34.9 % (37.2-46.3); HGB 11.4 g/dL (12.0-15.0); MCH 32.8 pg (27.0-32.0); MCHC 32.7 g/dL (32.0-37.0); MCV 100.3 fL (80.0-97.0); Platelet Count 253 10*3/uL (140-440); RBC 3.48 10*6/uL (4.10-5.20); RDW 13.9 % (11.5-14.5); WBC 5.51 10*3/uL (4.50-10.00)
[2025-04-10 07:34] LABS: African American GFR (CKD) >90 (>60 ml/min/1.73 sqM); Anion Gap 7 mmol/L; Blood Urea Nitrogen 8 mg/dL (7-17); Calcium 9.4 mg/dL (8.4-10.2); Carbon Dioxide 29 mmol/L (22-30); Chloride 104 mmol/L (98-107); Glucose 91 mg/dL (74-99); Non-African American GFR(CKD) >90 (>60 ml/min/1.73 sqM); Potassium 4.2 mmol/L (3.5-5.1); Sodium 140 mmol/L (137-145)
[2025-04-10 07:56] VITALS: BP 103/64; TEMP 97.8
--- NOTE | 2025-04-10 08:33 | XR ---
EXAMINATION TYPE: XR chest 2V DATE OF EXAM: 04/10/2025 6:53 AM COMPARISON: Chest radiograph from one day prior. CLINICAL INDICATION: Female, 59 years old with history of post left upper lobectomy; [facility] TECHNIQUE: XR chest 2V Frontal and lateral views of the chest. FINDINGS: Lungs/Pleura: Trace left pneumothorax. There is no evidence of pleural effusion, focal consolidation, or right pneumothorax. Pulmonary vascularity: Unremarkable. Heart/mediastinum: Cardiomediastinal silhouette is unremarkable. Musculoskeletal: No acute osseous pathology. Other findings: None Lines/Tubes: Removal left thoracotomy tube trace left pneumothorax IMPRESSION: Removal left thoracotomy tube trace left pneumothorax [facility], , 04/10/2025 8:31 AM
[2025-04-10 09:14] VITALS: PULSE 69
--- NOTE | 2025-04-10 10:12 | P.DS ---
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 Sharad Argueta for internal medicine and Dr. Avina for pulmonology. She had a long smoking history and had been followed for pulmonary nodularity. There was a small nodule in the right middle lobe and small nodule in the lower portion of the left upper lobe. The latter lesion had grown over the last year or so, Dr. Avina did a robotic bronchoscopy as well as EBUS in September. Biopsies were positive for non-small cell carcinoma in the primary tumor in the left upper lobe. EBUS specimens were negative. There was no lymphadenopathy on CAT scan, however she had a PET scan in September which demonstrated significant uptake in the left upper lobe nodule as well as in the hilum and also in the AP window. When compared with previous PET scan from September 2022 none of those areas previously lit up to any significance. The patient was referred to Dr. Howell from cardiothoracic surgery. She was recommended to undergo neoadjuvant chemotherapy followed by reevaluation for probable lobectomy. She was seen again by Dr. Howell in February of this year after induction chemotherapy. CT scan showed near complete resolution of the previous left upper lobe mass with some scar residual, lymph nodes had decreased significantly demonstrating excellent response on CT scan. She was recommended to undergo robotic assisted left upper lobectomy. The usual perioperative course was discussed in detail with the patient and her family, all risks and benefits were explained, all questions were answered, and consent was obtained to proceed with surgery. The patient was scheduled for surgery at the earliest possible date. HOSPITAL COURSE: The patient was brought to the hospital on 04/05/25, taken to the preoperative area, prepared in the usual fashion, and subsequently taken to the operating room where Dr. Howell performed robotic assisted thoracoscopic left upper lobectomy. Upon completion of surgery the patient was extubated and taken to the recovery room with eventual admission to the cardiac stepdown unit where she was recovered and monitored hemodynamically. Her chest tube was placed to waterseal the night of surgery. Once her airleak resolved completely her chest tube was discontinued, follow-up chest x-ray was stable. Her oxygen was titrated down, she was tolerating oral diet, her pain was controlled, and she was ready to be discharged to home on postoperative day #5. She received written and verbal instruction regarding her medications, activity restrictions, signs and symptoms requiring physician notification, and follow-up appointments. Patient Condition at Discharge: Stable Plan - Discharge Summary Discharge Rx Participant: No New Discharge Prescriptions: New Acetaminophen Tab [Tylenol] 650 mg PO Q4HR PRN tab PRN Reason: Mild To Moderate Pain (1 - 6) traMADol HCl [Ultram] 50 mg PO QID PRN #12 tab PRN Reason: Severe Pain (Scale 7 To 10) Sennosides-Docusate Sodium [Senokot-S] 1 each PO BID PRN tab PRN Reason: Constipation Continue Levothyroxine Sodium 100 mcg PO QAM Vitamin B Complex 1 each PO DAILY [place]-3/Dha/Epa/Fish Oil [Fish Oil 1,000 mg Softgel] 1 each PO DAILY Fluticasone/Umeclidin/Vilanter [Trelegy Ellipta 100-62.5-25] 1 inhalation INHALATION DAILY Cholecalciferol [Vitamin D3 (25 Mcg = 1000 Iu)] 25 mcg PO DAILY Atorvastatin [Lipitor] 20 mg PO HS Albuterol Inhaler [Ventolin Hfa Inhaler] 1 - 2 puff INHALATION Q6H PRN PRN Reason: Shortness Of Breath Discharge Medication List Levothyroxine Sodium 100 mcg PO QAM 01/03/20 [History] Cholecalciferol [Vitamin D3 (25 Mcg = 1000 Iu)] 25 mcg PO DAILY 12/30/23 [History] [place]-3/Dha/Epa/Fish Oil [Fish Oil 1,000 mg Softgel] 1 each PO DAILY 12/30/23 [History] Vitamin B Complex 1 each PO DAILY 12/30/23 [History] Albuterol Inhaler [Ventolin Hfa Inhaler] 1 - 2 puff INHALATION Q6H PRN 04/03/25 [History] Atorvastatin [Lipitor] 20 mg PO HS 04/03/25 [History] Fluticasone/Umeclidin/Vilanter [Trelegy Ellipta 100-62.5-25] 1 inhalation INHALATION DAILY 04/03/25 [History] Acetaminophen Tab [Tylenol] 650 mg PO Q4HR PRN tab 04/10/25 [Rx] Sennosides-Docusate Sodium [Senokot-S] 1 each PO BID PRN tab 04/10/25 [Rx] traMADol HCl [Ultram] 50 mg PO QID PRN #12 tab 04/10/25 [Rx] Follow up Appointment(s)/Referral(s): Anatoliy Howell MD [STAFF PHYSICIAN] - 04/23/25 11:00 am Randall Velez MD [STAFF PHYSICIAN] - 1 Week Bren Carrington MD [Primary Care Provider] - As Needed Lenore Avina MD [STAFF PHYSICIAN] - 05/17/25 10:00 am Activity/Diet/Wound Care/Special Instructions: DISCHARGE INSTRUCTIONS: 1. No driving for 2 weeks, or until physician gives their ok. 2. No lifting, pushing, or pulling more than 10 pounds for 2 weeks. The physician will advise of any restriction changes. 3. Continue pain control per as needed orders. Alternate acetaminophen (Tylenol) and ibuprofen (Motrin/Advil) for pain. 4. Continue with incentive spirometry and splinting until otherwise directed by the physician. 5. Leave chest tube dressing for 48 hours. After that, remove all dressings and shower daily. 6. Routine incision care. No powders, lotions, ointments on incisions. 7. Please call surgeon/INTERDISCIPLINARY PROFESSOR for temp greater than 101 F or purulent drainage from incisions. 8. Smoking cessation counseling and program information provided. Quitting smoking is the most important step you can take to improve your health. For additional information and assistance to quit smoking, please call the [place] tobacco quit line (9-124-WEJU-NOW/ ) or online: [email or web address] Discharge Disposition: HOME SELF-CARE
== END 2025-04-10 10:42 | disposition home or self-care (01) | DRG 165 ==
LOC: 2ORMAIN 04-05 05:34 → 3SCARD 04-05 12:40
PROVIDERS: ADMIT Thoracic Surgery (Cardiothoracic Vascular Surgery); ATTEND Thoracic Surgery (Cardiothoracic Vascular Surgery)
PROC: 07B74ZX Excision of Thorax Lymphatic, Percutaneous Endoscopic Approach, Diagnostic (ICD-10-PCS; principal; 2025-04-05 07:30)
PROC: 0BTG4ZZ Resection of Left Upper Lung Lobe, Percutaneous Endoscopic Approach (ICD-10-PCS; principal; 2025-04-05 07:30)
PROC: 8E0W4CZ Robotic Assisted Procedure of Trunk Region, Percutaneous Endoscopic Approach (ICD-10-PCS; principal; 2025-04-05 07:30)
DX: C34.12 Malignant neoplasm of upper lobe, left bronchus or lung (principal); J44.9 Chronic obstructive pulmonary disease, unspecified; E03.9 Hypothyroidism, unspecified; I10 Essential (primary) hypertension; R91.8 Other nonspecific abnormal finding of lung field; E78.5 Hyperlipidemia, unspecified; Z79.899 Other long term (current) drug therapy; Z86.0100 Personal history of colon polyps, unspecified; Z87.891 Personal history of nicotine dependence; Z92.21 Personal history of antineoplastic chemotherapy; Z79.890 Hormone replacement therapy
CPT/HCPCS: 64466; 71045; 71046; 80048; 83036; 85025; 85027; 88305; 88309; 88331; 94640; 94760

== ENCOUNTER → 2025-04-04 | Outpatient (CLI) | payer BC ==
[2025-04-04 10:03] LABS: Partial Thromboplastin Time 24.7 sec (22.0-30.0); Prothrombin Time 10.7 sec (10.0-12.5)
[2025-04-04 16:02] LABS: Basophils # (A) 0.03 X 10*3/uL (0.00-0.10); Basophils % (A) 0.7 %; Eosinophils # (A) 0.18 X 10*3/uL (0.04-0.35); Eosinophils % (A) 4.1 %; HCT 39.9 % (37.2-46.3); HGB 12.8 g/dL (12.0-15.0); Lymphocytes # (A) 1.65 X 10*3/uL (0.90-5.00); Lymphocytes % (A) 37.2 %; MCH 32.5 pg (27.0-32.0); MCHC 32.1 g/dL (32.0-37.0); MCV 101.3 FL (80.0-97.0); Mean Platelet Volume 9.8 FL (9.5-12.2); NRBC Per 100 WBC 0 X 10*3/uL (0.00-0.01); Neutrophils # (A) 2.15 X 10*3/uL (1.80-7.70); Neutrophils % (A) 48.5 %; Platelet Count 335 X 10*3/uL (140-440); RBC 3.94 X 10*6/uL (4.10-5.20); RDW 14.1 % (11.5-14.5); WBC 4.43 X 10*3/uL (4.50-10.00)
[2025-04-04 16:05] LABS: BUN/Creat Ratio 12.17 Ratio (12.00-20.00); Blood Urea Nitrogen 7.3 mg/dL (9.0-27.0); Chloride 102 mmol/L (96-109); Glucose 96 mg/dL (70-110); Potassium 4.3 mmol/L (3.5-5.5); Sodium 139 mmol/L (135-145)
[2025-04-04 16:06] LABS: ALT 15 U/L (8-44); AST 25 U/L (13-35); Albumin 4.6 g/dL (3.8-4.9); Albumin/Globulin Ratio 1.48 Ratio (1.60-3.17); Alkaline Phosphatase 86 U/L (41-126); Calcium 9.6 mg/dL (8.7-10.3); Globulin 3.1 g/dL (1.6-3.3); Total Bilirubin 0.3 mg/dL (0.3-1.2); Total Protein 7.7 g/dL (6.2-8.2)
[2025-04-04 16:43] LABS: Appearance,Urine Clear (Clear); Bilirubin,Urine Negative (Negative); Blood,Urine Negative (Negative); Color,Urine Yellow (Yellow); Ketones,Urine Negative (Negative); Nitrite,Urine Negative (Negative); PH, Urine 6.5; Specific Gravity,Urine 1.005 (1.001-1.030); Urobilinogen,Urine 0.2 E.U./DL
[2025-04-04 17:09] LABS: Bacteria,Urine None Seen (None Seen)
== END | disposition home or self-care (01) ==
LOC: LABPAT 08:40
PROVIDERS: ATTEND Thoracic Surgery (Cardiothoracic Vascular Surgery)
DX: Z01.818 Encounter for other preprocedural examination (principal); C34.90 Malignant neoplasm of unspecified part of unspecified bronchus or lung; R06.00 Dyspnea, unspecified; Z79.899 Other long term (current) drug therapy
CPT/HCPCS: 80053; 81001; 85025; 85610; 85730; 86850; 86870; 86900; 86901; 86902; 93005